=== PATIENT | female | born 1965 | race Caucasian/White ===

== ENCOUNTER 2020-05-23 12:39 | Outpatient (CLI) | payer MEDICARE, MEDICAID, SELFPAY ==
--- NOTE | 2020-05-23 13:06 | MR_ITS ---
WS: [id number] MRI LEFT SHOULDER NONCONTRAST TECHNIQUE: Sagittal T2, coronal T1, T2 and proton density imaging. Axial gradient PDE imaging. CLINICAL INFORMATION: PAIN LEFT SHOULDER JOINT COMPARISON: None. FINDINGS: Moderate degenerative arthritis at the AC joint with mild subacromial spurring. Mild edema at the AC joint. Tiny trace of subacromial/subdeltoid fluid. Mild chronic thinning of the distal supraspinatus. Tendinopathy involving the supraspinatus. Normal infraspinatus. Normal teres minor. Normal subscapul ruddy. No high-grade rotator cuff tears. Normal biceps tendon in the bicipital groove. Moderate degenerative arthritis at the glenohumeral andreina nt. Grossly normal glenoid labrum. Normal visualized soft tissues. MR/MR shoulder LT wo con* [id number] IMPRESSION: 1. Moderate degenerative arthritis at the AC joint with mild edema. Slight sub acromial spurring. 2. Mild tendinopathy in the distal supraspinatus with chronic thinning. 3. Rotator cuff is otherwise normal in appearance. No high-grade rotator cuff tears. 4. Normal biceps tendon in the bicipital groove. 5. Glenoid labrum is grossly normal.
== END 2020-05-23 12:40 | disposition home or self-care (01) ==
LOC: RADSHAW 12:41
PROVIDERS: PCP Nurse Practitioner Family; Visit Provider Nurse Practitioner Family
DX: M19.012 Primary osteoarthritis, left shoulder (principal)
CPT/HCPCS: 73221

== ENCOUNTER 2020-05-25 11:49 | Emergency (ER) | payer MEDICARE, MEDICAID, SELFPAY ==
[2020-05-25 11:51] VITALS: BP 146/88; PULSE 72; RESP 16; TEMP 36.3; O2SAT 100; BMI 34.7
--- NOTE | 2020-05-25 12:11 | ECG_ITS ---
[facility] Test Date: 2020-05-25 Pat Name: Zari Aldana Department: Room: Gender: Female Order Checker Packer Processer: : 1965 Requested By: Shane Moran Order Number: [id number] Aaron MD: Catrachito Laureano M.D. Measurements Intervals [place] Rate: 70 P: 53 AZ: 150 QRS: -14 QRSD: 83 T: 55 QT: 395 QTc: 429 Interpretive Statements SINUS RHYTHM LOW QRS VOLTAGE IN PRECORDIAL LEADS [QRS DEFLECTION < 1.0 mV IN CHEST LEADS] PATTERN CONSISTENT WITH PULMONARY DISEASE No previous ECG available for comparison Electronically Signed On 05-25-2020 16:02:31 GOAT HERDER by Catrachito Laureano M.D. [id number] f
--- NOTE | 2020-05-25 12:11 | XR_ITS ---
WS: [id number] Portable AP upright chest, 05/25/2020 Clinical Data: chest pain Comparison: None. Findings: No nodules, masses or effusions are seen. The heart is normal. The pulmonary vascularity is not increased. No pneumonia or pneumothorax is seen. There are monitor leads on the chest wall. The patient has had an anterior cervical disc fusion of the lower cervical spine. XR/XR chest 1V portable [id number] Impression: Negative chest.
[2020-05-25 12:18] VITALS: O2SAT 100
[2020-05-25 12:59] VITALS: BP 113/77; PULSE 69; RESP 21; O2SAT 99
--- NOTE | 2020-05-25 12:59 | ED_ITS ---
HPI - Chest Pain General: Chief Complaint: Chest Pain Stated Complaint: CP Time Seen by Provider: 05/25/20 12:11 History of Present Illness: HPI narrative: 55-year-old female presents emergency room clinic left-sided chest pain and shortness of breath does not radiate anywhere. Is been intermittent over the last month. 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 No fever sweats chills no nausea vomiting or diarrhea. She recently had an MRI that showed a left rotator cuff in addition to that she states she has a hiatal hernia and in the past has had esophageal strictures requiring dilation. Intermittently she will feel like things get stuck but she has not had any vomiting or difficulty getting food or liquid down just recently. Discomfort is worse when she eats better if she does not better when she takes her pantoprazole she has had this off and on for some time now. MD complaint: chest discomfort Onset (ago): year(s) Timing of current episode: episodic Onset: after eating Pain location: epigastric Pain radiation: other (Lower chest) Severity: mild Quality: aching Relieving factors: other (Not eating) Exacerbating factors: eating Associated symptoms: Reports abdominal pain, nausea, vomiting (Occasionally) and other; Deny diaphoresis, dyspnea, fever(s), leg edema, palpitations, sense of impending doom or syncope Review of Systems Const: Denies: fever(s) or diaphoresis ENMT: Denies: throat pain, ear or mastoid pain, nasal discharge or nasal congestion Card: Denies: palpitations or syncope Resp: Denies: dyspnea GI: Reports: abdominal pain, nausea and vomiting (Occasionally) : Denies: flank pain, difficulty voiding, dysuria, urinary frequency or urinary urgency Skin/Breast: Denies: rash or pruritus Physical Exam Const: COMMON NORMALS: no acute distress GENERAL APPEARANCE: cooperative and comfortable ORIENTATION/CONSCIOUSNESS: Yes awake, Yes oriented to person, Yes oriented to place and Yes oriented to time HENMT: COMMON NORMALS: normocephalic, atraumatic and hearing grossly normal bilaterally HEAD & SCALP: normocephalic and atraumatic Neck/C-Spine: COMMON NORMALS: no JVD Resp: COMMON NORMALS: normal respiratory effort, No retractions, No use of accessory muscles and clear to auscultation bilaterally AUSCULTATION: clear to auscultation bilaterally Cardio: COMMON NORMALS: no JVD, regular rate, regular rhythm and No murmurs present (Cardio) RATE: regular rate RHYTHM: regular rhythm GI: COMMON NORMALS: Soft to palpation and No hepatosplenomegaly present AUSCULTATION: Yes normoactive bowel sounds PALPATION: Yes Soft to palpation, No Tenderness to palpation present (GI), No Guarding due to palpation present (GI) and Yes No hepatosplenomegaly present Extremity: COMMON NORMALS: normal to inspection, capillary refill normal, no clubbing, cyanosis or edema, no calf tenderness and no pedal edema Neuro: SENSORIUM/ORIENTATION: Yes oriented to person, Yes oriented to place and Yes oriented to time Skin: COMMON NORMALS: no rashes or lesions noted GENERAL SKIN EXAM: no rashes or lesions noted Course Vital Signs: Vital signs: Vital Signs Temperature 97.3 F L 05/25/20 11:51 Pulse Rate 76 05/25/20 16:23 Respiratory Rate 17 05/25/20 16:23 Blood Pressure 109/81 05/25/20 16:23 Pulse Oximetry 100 05/25/20 16:23 MDM - Chest Pain MDM Narrative: Medical decision making narrative: Patient has no chest pain now EKG is unremarkable but discharged home she is improved. We will have her follow-up with GI for EGD and possible dilation. Shayne troponins negative Lab Data: Labs: Lab Results 05/25/20 05/25/20 05/25/20 Range/Units 12:55 12:55 12:55 WBC 4.2 (4.0-10.0) 10^3/ uL RBC 4.00 L (4.1-5.3) 10^6/u L Hgb 11.8 (11.5-15.3) g/dL Hct 36.1 L (37.0-47.0) % MCV 90.3 (81-99) fL MCH 29.5 (28.0-34.0) pg MCHC 32.7 (30.0-36.0) g/dL RDW 15.2 H (12.1-15.1) % Plt Count 250 (130-400) 10^3/c mm MPV 11.1 H (7.4-10.4) fL Neut % (Auto) 60.3 % Lymph % (Auto) 27.3 % Fisher % (Auto) 8.1 % Eos % (Auto) 3.8 % Baso % (Auto) 0.5 % Neut # (Auto) 2.52 (1.8-7.7) 10^3/u L Lymph # (Auto) 1.1 (0.8-4.8) 10^3/u L Fisher # (Auto) 0.3 (0.2-0.9) 10^3/u L Eos # (Auto) 0.2 (0.0-0.8) 10^3/u L Baso # (Auto) 0.0 (0.0-0.1) 10^3/u L Nucleated RBC % (a uto) 0 % Nucleated RBCs # 0.0 /100WBC Sodium 141 (136-145) mmol/L Potassium 4.4 (3.5-5.1) mmol/L Chloride 103 (98-107) mmol/L Carbon Dioxide 26 (22-29) mmol/L Anion Gap 16.4 (5-19) BUN 10 (6-20) mg/dL Creatinine 0.7 (0.5-0.9) mg/dL GFR Calculation 87.2 L (90-130) mL/min Glucose 79 (65-115) mg/dL Calculated Osmolal ity 290 (285-295) mOsm/k g Calcium 9.2 (8.5-10.5) mg/dL Total Bilirubin 0.3 (0.15-1.2) mg/dL AST 22 (0-32) U/L ALT 16 (0-33) U/L Alkaline Phosphata se 78 (35-105) IU/L Troponin T Baselin e 6 (0-10) ng/L Troponin T 120 Min [place] (0-10) ng/L Delta Troponin T (0-10) ABS# Total Protein 6.3 L (6.6-8.7) g/dL Albumin 4.0 (3.5-5.2) g/dL Globulin 2.3 (1.3-4.6) g/dL 05/25/20 Range/Units 15:03 WBC (4.0-10.0) 10^3/ uL RBC (4.1-5.3) 10^6/u L Hgb (11.5-15.3) g/dL Hct (37.0-47.0) % MCV (81-99) fL MCH (28.0-34.0) pg MCHC (30.0-36.0) g/dL RDW (12.1-15.1) % Plt Count (130-400) 10^3/c mm MPV (7.4-10.4) fL Neut % (Auto) % Lymph % (Auto) % Fisher % (Auto) % Eos % (Auto) % Baso % (Auto) % Neut # (Auto) (1.8-7.7) 10^3/u L Lymph # (Auto) (0.8-4.8) 10^3/u L Fisher # (Auto) (0.2-0.9) 10^3/u L Eos # (Auto) (0.0-0.8) 10^3/u L Baso # (Auto) (0.0-0.1) 10^3/u L Nucleated RBC % (a uto) % Nucleated RBCs # /100WBC Sodium (136-145) mmol/L Potassium (3.5-5.1) mmol/L Chloride (98-107) mmol/L Carbon Dioxide (22-29) mmol/L Anion Gap (5-19) BUN (6-20) mg/dL Creatinine (0.5-0.9) mg/dL GFR Calculation (90-130) mL/min Glucose (65-115) mg/dL Calculated Osmolal ity (285-295) mOsm/k g Calcium (8.5-10.5) mg/dL Total Bilirubin (0.15-1.2) mg/dL AST (0-32) U/L ALT (0-33) U/L Alkaline Phosphata se (35-105) IU/L Troponin T Baselin e (0-10) ng/L Troponin T 120 Min [place] 6.00 (0-10) ng/L Delta Troponin T 0 (0-10) ABS# Total Protein (6.6-8.7) g/dL Albumin (3.5-5.2) g/dL Globulin (1.3-4.6) g/dL Discharge Plan Discharge Patient Disposition: Home Clinical Impression: Atypical chest pain, Hernia, hiatal, Chronic GERD Condition: Stable Prescriptions: No Action fluticasone propionate 50 mcg/actuation spray,suspension 2 spray intranasal DAILY RF: 0 allopurinol 300 mg tablet 150 mg PO DAILY@2199 RF: 0 alprazolam 0.5 mg tablet 0.5 mg PO TID PRN (Reason: Anxiety) RF: 0 cyclobenzaprine 10 mg tablet 10 mg PO BID PRN (Reason: Pain) RF: 0 docusate sodium 100 mg capsule 200 mg PO DAILY@2199 RF: 0 epinephrine 0.15 mg/0.3 mL auto-injector 0.15 mg IM Q30M PRN (Reason: Allergy Symptoms) RF: 0 hydroxychloroquine 200 mg tablet 200 mg PO BID@ RF: 0 levothyroxine 150 mcg tablet 150 mcg PO DAILY@ RF: 0 montelukast 10 mg tablet 10 mg PO DAILY RF: 0 Movantik 25 mg tablet 25 mg PO BID RF: 0 pantoprazole 40 mg tablet,delayed release (DR/EC) 40 mg PO BID@ RF: 0 oxycodone-acetaminophen [Percocet] 7.5-325 mg tablet 1 tab PO .five x a day PRN (Reason: Pain) RF: 0 promethazine 25 mg tablet 25 mg PO BID PRN (Reason: Nausea) RF: 0 Trulicity 0.75 mg/0.5 mL pen injector 0.5 mg SUBCUT Q7D RF: 0 cetirizine [Zyrtec] 10 mg tablet 10 mg PO DAILY PRN (Reason: Allergy Symptoms) RF: 0 gabapentin 400 mg Capsule 400 mg PO BID@ RF: 0 pramipexole 0.125 mg tablet 0.125 mg PO BEDTIME RF: 0 albuterol sulfate 90 mcg/actuation Hfa Aerosol Inhaler 2 puff INHALATION Q6H PRN (Reason: Shortness Of Breath) RF: 0 metformin 500 mg Tablet,Er Miryam.Retention 24 Hr 1,000 mg PO BID@ RF: 0 Discharge Orders: Discharge ED (Routine); Ordered 05/25/20 Ordered By: Shane Parada Referrals: Trish Mclain, SYSTEM DEVELOPER ASSOCIATE MANAGER-C [Primary Care Provider] - Discharge Diet: Usual diet Discharge Activity: Resume usual activity Activity Restrictions/Additional Instructions: Case management will call to make arrangements for follow-up for EGD. Coding Level of Care Code ED Tribal Judge for Chg Fwd
[2020-05-25 13:08] LABS: Basophils % 0.5 %; Eosinophils # 0.2 10^3/uL (0.0-0.8); Eosinophils % 3.8 %; Hematocrit 36.1 % (37.0-47.0); Hemoglobin 11.8 g/dL (11.5-15.3); Lymphocytes # 1.1 10^3/uL (0.8-4.8); Lymphocytes % 27.3 %; Mean Corpuscular HGB Conc 32.7 g/dL (30.0-36.0); Mean Corpuscular Hemoglobin 29.5 pg (28.0-34.0); Mean Corpuscular Volume 90.3 fL (81-99); Mean Platelet Volume 11.1 fL (7.4-10.4); Monocytes # 0.3 10^3/uL (0.2-0.9); Monocytes % 8.1 %; Neutrophils # 2.52 10^3/uL (1.8-7.7); Neutrophils % 60.3 %; Nucleated Red Blood Cells % 0 %; Platelet Count 250 10^3/cmm (130-400); Red Cell Distribution Width 15.2 % (12.1-15.1); White Blood Count 4.2 10^3/uL (4.0-10.0)
[2020-05-25 13:27] LABS: Alanine Aminotransferase 16 U/L (0-33); Alkaline Phosphatase 78 IU/L (35-105); Anion Gap 16.4 (5-19); Aspartate Amino Transferase 22 U/L (0-32); Blood Urea Nitrogen 10 mg/dL (6-20); Calcium 9.2 mg/dL (8.5-10.5); Carbon Dioxide 26 mmol/L (22-29); Chloride 103 mmol/L (98-107); Globulin 2.3 g/dL (1.3-4.6); Glomerular Filtration Rate 87.2 mL/min (90-130); Glucose 79 mg/dL (65-115); Osmolality Calculated 290 mOsm/kg (285-295); Potassium 4.4 mmol/L (3.5-5.1); Sodium 141 mmol/L (136-145); Total Bilirubin 0.3 mg/dL (0.15-1.2); Total Protein 6.3 g/dL (6.6-8.7)
[2020-05-25 13:43] LABS: Troponin(5th) Baseline 6 ng/L (0-10)
[2020-05-25 14:07] VITALS: BP 128/86; PULSE 68; RESP 21; O2SAT 99
--- NOTE | 2020-05-25 14:11 | ECG_ITS ---
[facility] Test Date: 2020-05-25 Pat Name: Zari Aldana Department: Room: Gender: Female Junior Legal Secretary: : 1965 Requested By: Shane Moran Order Number: [id number] Aaron MD: Catrachito Laureano M.D. Measurements Intervals [place] Rate: 64 P: 43 AZ: 149 QRS: -11 QRSD: 86 T: 41 QT: 414 QTc: 427 Interpretive Statements SINUS RHYTHM LOW QRS VOLTAGE IN PRECORDIAL LEADS [QRS DEFLECTION < 1.0 mV IN CHEST LEADS] POSSIBLE ANTERIOR MYOCARDIAL INFARCTION , PROBABLY OLD [30 ms Q WAVE IN V3/V4, OR R < 0.2 mV IN V4] Compared to ECG 05/25/2020 11:55:02 Myocardial infarct finding now present Electronically Signed On 05-25-2020 16:04:34 AGRICULTURAL EXTENSION SPECIALIST by Catrachito Laureano M.D. [email or web address].[email or web address]/store/[id number]
[2020-05-25 15:29] LABS: Troponin 5 2HR Delta 0 ABS# (0-10)
--- NOTE | 2020-05-25 15:43 | PC.NURSE ---
UA collected and sent to lab
[2020-05-25 16:23] VITALS: BP 109/81; PULSE 76; RESP 17; O2SAT 100
--- NOTE | 2020-05-26 09:28 | DCPLANNER ---
manager of health had message to schedule a follow up appointment for patient with Dr. Johnston. manager of health called the office of Dr. Johnston, spoke with Deb, gave clinic patients information. manager of health was told that patients information would be printed and reviewed. Clinic will call patient with appointment information.
--- NOTE | 2020-05-31 10:48 | DCPLANNER ---
Patient has a follow up appointment scheduled for Friday, June 05, 2020 at 2:[address] Johnston. Clinic will call patient with appointment information.
--- NOTE | 2020-06-29 15:27 | DCPLANNER ---
Patient had a follow up appointment scheduled for 06.05.[address] Johnston - patient did attend appointment.
== END 2020-05-25 16:00 | disposition home or self-care (01) ==
PROVIDERS: Emergency Provider Family Medicine; PCP Nurse Practitioner Family
DX: R07.89 Other chest pain (principal); K44.9 Diaphragmatic hernia without obstruction or gangrene; K21.9 Gastro-esophageal reflux disease without esophagitis; Z79.891 Long term (current) use of opiate analgesic; Z79.84 Long term (current) use of oral hypoglycemic drugs
CPT/HCPCS: 71045; 80053; 84484; 85025; 93005; 99283

== ENCOUNTER → 2020-07-07 09:43 | Outpatient (BNVA) | payer MEDICARE, MEDICAID, SELFPAY | PROVIDERS: PCP Nurse Practitioner Family; Visit Provider Orthopaedic Surgery | DX: M50.21 Other cervical disc displacement, high cervical region (principal); M50.223 Other cervical disc displacement at C6-C7 level; Z86.59 Personal history of other mental and behavioral disorders | CPT/HCPCS: 72050 ==

== ENCOUNTER 2020-07-14 08:06 | Inpatient (IN) | payer MEDICARE, MEDICAID, SELFPAY ==
[2020-07-14] VITALS (9 sets, daily range): BP systolic 100–124; BP diastolic 62–77; PULSE 61–74; RESP 12–19; TEMP 36.2–36.6; O2SAT 97–100
--- NOTE | 2020-07-14 10:41 | PM.HP ---
Providers/Chief Complaint Admitting Physician: Kimberlee Zapien MD Primary Care Provider: Trish MclainP-C History of Present Illness Zari Aldana is a 55 year old female presents as a transfer from [place] emergency department with complaints of right flank pain. Patient reports this has been going on for at least 2 days. She has had some chills, dysuria, hesitancy and frequency. She has not had any recorded fevers, or obvious hematuria. She has had a little bit of loose stool. She has been anorexic, not wanting to eat and drink and drinking very little in the last 24 hours. She reports the pain currently is rather continuous and difficult to bear. She reports past history of renal stones but never any that she has passed or cause the significant amount of pain. She has not had any vomiting but reports that she cannot as she had gastric bypass. While in the emergency department at [place] she received a full laboratory work-up, urinalysis, urine culture. I did not see a blood culture. She had no evidence of hypotension. She was hypoglycemic with a hemoglobin around 50 which was supplemented with oral as well as IV glucose. CT scan at the [facility] demonstrated a left mid ureteral stone without hydronephrosis. Review of Systems General: Reports: 10 or more systems reviewed and unremarkable except in HPI and below Const: Reports: chills and night sweats; Denies: fever(s) Eyes: Denies: change in vision ENMT: Denies: throat pain Card: Denies: chest pain Resp: Denies: dyspnea GI: Reports: abdominal pain, nausea and diarrhea; Denies: vomiting : Reports: flank pain, dysuria, urinary frequency and urinary hesitancy Musc: Reports: neck pain (Has chronic back and neck pain) and back pain Skin/Breast: Denies: rash Neuro: Denies: headache(s) Psych: Reports: anxiety and depression Endo: Denies: polyuria Magdi/Lymph: Denies: easy bruising All/Imm: Denies: urticaria Medications/Allergies Home Medications Medication Instructions Recorded Confirmed Last Taken Type allopurinol 300 mg tablet 150 mg PO DAILY@2200 05/16/20 05/25/20 05/24/20 History alprazolam 0.5 mg tablet 0.5 mg PO TID PRN 05/16/20 05/25/20 Unknown History cetirizine 10 mg tablet 10 mg PO DAILY PRN 05/16/20 05/25/20 Unknown History cyclobenzaprine 10 mg tablet 10 mg PO BID PRN tab 05/16/20 05/25/20 Unknown History docusate sodium 100 mg capsule 200 mg PO DAILY@2200 cap 05/16/20 05/25/20 05/24/20 History dulaglutide 0.75 mg/0.5 mL 0.5 mg SUBCUT Q7D ml 05/16/20 05/25/20 05/20/20 History subcutaneous pen injector epinephrine 0.15 mg/0.3 mL 0.15 mg IM Q30M PRN 05/16/20 05/25/20 Unknown History injection,auto-injector hydroxychloroquine 200 mg tablet 200 mg PO BID@07,0 05/16/20 05/25/20 05/25/20 History levothyroxine 150 mcg tablet 150 mcg PO DAILY@07 05/16/20 05/25/20 05/25/20 History montelukast 10 mg tablet 10 mg PO DAILY 05/16/20 05/25/20 05/24/20 History naloxegol 25 mg tablet 25 mg PO BID tab 05/16/20 05/25/20 05/25/20 History oxycodone-acetaminophen 7.5 mg-325 1 tab PO .five x a day PRN tab 05/16/20 05/25/20 05/25/20 History mg tablet pantoprazole 40 mg tablet,delayed 40 mg PO BID@0 tab 05/16/20 05/25/20 05/25/20 History release promethazine 25 mg tablet 25 mg PO BID PRN tab 05/16/20 05/25/20 Unknown History albuterol sulfate 2 puff INHALATION Q6H PRN 05/25/20 06/05/20 Unknown History gabapentin 400 mg PO BID@05/25/20 06/05/20 05/25/20 History pramipexole 0.125 mg PO BEDTIME 05/25/20 06/05/20 05/24/20 History metformin 500 mg 24 hr See Rx Instructions PO BID@07/07/20 Unknown History tablet,extended release Allergies Allergy/AdvReac Type Severity Reaction Status Date / Time celecoxib [From Celebrex] Allergy Intermediate Unknown Verified 07/07/20 09:29 hylan G-F 20 [From Synvisc] Allergy Intermediate unknown Verified 07/07/20 09:29 nitrofurantoin Allergy Intermediate unknown Verified 07/07/20 09:29 [From Macrobid] NSAIDS (Non-Steroidal Allergy Intermediate unknown Verified 07/07/20 09:29 Anti-Inflamma ropinirole Allergy Intermediate unknown Verified 07/07/20 09:29 Sulfa (Sulfonamide Allergy Intermediate Unknown Verified 07/07/20 09:29 Antibiotics) PFSH Acute PFSH: Medical History (Updated 07/14/20 @ 10:53 by Gen Bahena MD) Anemia Asthma Chronic back pain Chronic pain Diabetes mellitus Fibromyalgia GERD (gastroesophageal reflux disease) Gout Hypothyroidism Lupus (systemic lupus erythematosus) Nephrolithiasis Osteoarthritis PTSD (post-traumatic stress disorder) Spinal stenosis Stricture of esophagus Surgical History (Updated 07/14/20 @ 10:46 by Gen Bahena MD) Gastric bypass status for obesity History of carpal tunnel surgery History of cholecystectomy History of fusion of cervical spine History of lumbar spinal fusion History of shoulder surgery History of tonsillectomy History of tubal ligation Family History Sister Cancer Mother Diabetes Heart disease Grandfather Diabetes Grandmother Diabetes Father Heart disease Social History (Updated 07/14/20 @ 10:47 by Gen Bahena MD) Smoking and tobacco status: never smoked Alcohol intake: never Adopted: No Marital status: Single Number of children: 2 service: No History of recent travel: No Vitals/I&O/Wt Last Vital Signs Temp 97.2 F L 07/14/20 09:54 Pulse 63 07/14/20 09:54 Resp 16 07/14/20 09:54 BP 109/67 07/14/20 09:54 Pulse Ox 98 07/14/20 09:54 Weight last 48 hrs Weight 89.902 kg Physical Exam Narrative: EXAM NARRATIVE: General exam is a white female, in obvious discomfort but alert and oriented HEENT: Atraumatic normocephalic. Pupils equally round. Oropharynx clear. Neck is supple no lymphadenopathy or thyromegaly Cardiovascular regular rate and rhythm without murmur, no S3 or S4 Lungs clear no wheezing or crackles Abdomen is soft with positive bowel sounds. No obvious organomegaly exam is deferred Extremities no cyanosis clubbing or edema, cap refill brisk Skin no rash Neuro no obvious focal deficits. Data Other data: Laboratories from [place]. White blood cell count 5.1, hemoglobin 10.9, platelet count 261,000. Sodium 138, potassium 3.4, chloride 99, bicarb 25, BUN 7, creatinine 0.87, glucose 51, LFTs normal Urinalysis 3-5 whites 0-2 reds 2+ leukocyte Estrace 0-[address] demonstrates left mid ureter stone without hydronephrosis and question ileus Urine culture was obtained A&P Assessment and plan (1) Ureteral stone: Sounds on the left. She is having more right flank pain. Morphine for pain Urology consultation Hydration Initiation of Flomax Status: Acute (2) UTI (urinary tract infection): Urine culture was done at [facility]. Repeat here. Rocephin 1 g IV every 12 hours Blood culture Status: Acute (3) Flank pain: Atypical in that right side hurts and stone is on the left. Urology will review Status: Acute (4) Hypoglycemia: Continue D5 normal saline with 20 mEq of potassium per liter secondary to presentation with hypoglycemia. Note that her potassium was also slightly low. Status: Acute Additional A&P Information Diabetes, mild sliding scale insulin Lupus, hold immunosuppressants Chronic pain. Reports she is arranging for pain clinic visit soon. Multiple other medical problems as outlined in past medical history. Continue many home medications. Full code SCDs for DVT prophylaxis as surgery is anticipated Attestations Medical Necessity Statement*: Will need greater than 2 midnight stay for evaluation and treatment of renal stone with UTI Time Spent in Patient Care: Greater than 35 minutes Coding Level of Care Code Acute Form Designer for Chg Fwd Diagnoses Ureteral stone N20.1 UTI (urinary tract infection) N39.0 Flank pain R10.9 Hypoglycemia E16.2
[2020-07-14 11:24] LABS: Glucose Point of Care 148 mg/dL (70-110)
[2020-07-14 11:24] LABS: Glucose Point of Care 71 mg/dL (70-110)
[2020-07-14] MEDS: morphine 4 mg/mL SDV 1 mL 2 MG IVP ×2 (11:55→19:35)
[2020-07-14] MEDS: dextrose 5%-ns + KCl 20 20 MEQ/1,000 ML BAG 125 MEQ IV ×2 (12:25→21:44)
--- NOTE | 2020-07-14 15:19 | P.CONIM_ITS ---
Providers/Reason For Consult Consulting Physican/Specialty*: Urology/Gerardo Reason for Consult*: Pyelonephritis left ureteral calculus Attending Physician: Gen Bahena MD Primary Care Provider: Trish MclainP-Daniel History of Present Illness History of Present Illness Zari Aldana is a 55 year old female who I evaluated for the first time today in consultation for the above chief complaint. She has recently moved to this area from [place]. Reports a history of both recurrent UTIs and stones. Was seen at [place] emergency department last night and transferred for evaluation for possible obstructive pyelonephritis. She complained of several days of abdominal pain and nausea, chills, flank pain. She relates the symptoms as being primarily on the right side and typical for what she is experienced in the past when she had UTIs/pyelonephritis. No documented fever. Mild diarrhea. Work-up at [facility]: 1. White count was normal 2. Urinalysis showed pyuria 3. Normal vital signs 4. CT scan showed no evidence of obstruction but she did have what appeared to be a calcification in the left mid ureter. No hydronephrosis. The ureter was not dilated to the area of the calcification. She was not able to relate much in the way of her prior history other than she has had multiple evaluations including CT scans in [facility]. She thought she had some stones in her kidneys at that time. Review of Systems Const: Reports: chills, fatigue and malaise; Denies: fever(s) Eyes: Denies: change in vision ENMT: Denies: throat pain or hoarseness Card: Denies: chest pain or palpitations Resp: Denies: dyspnea or productive cough GI: Reports: abdominal pain, nausea and change in stool character : Reports: flank pain (Right-sided) Musc: Reports: neck pain, back pain and other (Chronic pain) Skin/Breast: Denies: rash, changing lesions or lesions Neuro: Denies: confusion, behavioral changes or Slurred speech present Psych: Denies: anxiety, depression or memory loss Endo: Denies: hot flashes Magdi/Lymph: Denies: easy bruising or easy bleeding All/Imm: Denies: urticaria Meds/Allergies Home Medications and Allergies Home Medications Medication Instructions Recorded Confirmed Last Taken Type allopurinol 300 mg tablet 150 mg PO DAILY@2200 05/16/20 05/25/20 05/24/20 History alprazolam 0.5 mg tablet 0.5 mg PO TID PRN 05/16/20 05/25/20 Unknown History cetirizine 10 mg tablet 10 mg PO DAILY PRN 05/16/20 05/25/20 Unknown History cyclobenzaprine 10 mg tablet 10 mg PO BID PRN tab 05/16/20 05/25/20 Unknown History docusate sodium 100 mg capsule 200 mg PO DAILY@2199 cap 05/16/20 05/25/20 05/24/20 History dulaglutide 0.75 mg/0.5 mL 0.5 mg SUBCUT Q7D ml 05/16/20 05/25/20 05/20/20 History subcutaneous pen injector epinephrine 0.15 mg/0.3 mL 0.15 mg IM Q30M PRN 05/16/20 05/25/20 Unknown History injection,auto-injector hydroxychloroquine 200 mg tablet 200 mg PO BID@05/16/20 05/25/20 05/25/20 History levothyroxine 150 mcg tablet 150 mcg PO DAILY@07 05/16/20 05/25/20 05/25/20 History montelukast 10 mg tablet 10 mg PO DAILY 05/16/20 05/25/20 05/24/20 History naloxegol 25 mg tablet 25 mg PO BID tab 05/16/20 05/25/20 05/25/20 History oxycodone-acetaminophen 7.5 mg-325 1 tab PO .five x a day PRN tab 05/16/20 05/25/20 05/25/20 History mg tablet pantoprazole 40 mg tablet,delayed 40 mg PO BID@0 tab 05/16/20 05/25/20 05/25/20 History release promethazine 25 mg tablet 25 mg PO BID PRN tab 05/16/20 05/25/20 Unknown History albuterol sulfate 2 puff INHALATION Q6H PRN 05/25/20 06/05/20 Unknown History gabapentin 400 mg PO BID@05/25/20 06/05/20 05/25/20 History pramipexole 0.125 mg PO BEDTIME 05/25/20 06/05/20 05/24/20 History metformin 500 mg 24 hr See Rx Instructions PO BID@07,22 07/07/20 Unknown History tablet,extended release Allergies Allergy/AdvReac Type Severity Reaction Status Date / Time celecoxib [From Celebrex] Allergy Intermediate Unknown Verified 07/07/20 09:29 hylan G-F 20 [From Synvisc] Allergy Intermediate unknown Verified 07/07/20 09:29 nitrofurantoin Allergy Intermediate unknown Verified 07/07/20 09:29 [From Macrobid] NSAIDS (Non-Steroidal Allergy Intermediate unknown Verified 07/07/20 09:29 Anti-Inflamma ropinirole Allergy Intermediate unknown Verified 07/07/20 09:29 Sulfa (Sulfonamide Allergy Intermediate Unknown Verified 07/07/20 09:29 Antibiotics) Current Medications Current Medications Generic Name Dose Route Start Last Admin Trade Name Freq PRN Reason Stop Dose Admin Potassium Chloride/Dextrose/Sod Cl 20 meq in 1,000 mls @ 125 mls/hr 07/14/20 10:45 07/14/20 12:25 Dextrose 5%-Ns + Kcl 20 IV 125 mls/hr .Q8H TANA Administration Insulin Aspart 0 unit 07/14/20 12:00 07/14/20 12:42 Insulin Aspart 100 Unit/1 Ml SUBCUT Not Given WM&BEDTIME TANA Protocol Morphine Sulfate 2 mg 07/14/20 09:53 07/14/20 11:55 Morphine 4 Mg/Ml Sdv 1 Ml IVP 2 mg Q4H PRN Administration SEVERE PAIN PFSH Acute PFSH: Medical History Anemia Asthma Chronic back pain Chronic pain Diabetes mellitus Fibromyalgia GERD (gastroesophageal reflux disease) Gout Hypothyroidism Lupus (systemic lupus erythematosus) Nephrolithiasis Osteoarthritis PTSD (post-traumatic stress disorder) Spinal stenosis Stricture of esophagus Surgical History Gastric bypass status for obesity History of carpal tunnel surgery History of cholecystectomy History of fusion of cervical spine History of lumbar spinal fusion History of shoulder surgery History of tonsillectomy History of tubal ligation Family History Sister Cancer Mother Diabetes Heart disease Grandfather Diabetes Grandmother Diabetes Father Heart disease Social History Smoking and tobacco status: never smoked Alcohol intake: never Adopted: No Marital status: Single Number of children: 2 service: No History of recent travel: No Vitals/I&O/Wt Last Vital Signs Temp 97.6 F 07/14/20 15:17 Pulse 63 07/14/20 15:17 Resp 16 07/14/20 15:17 BP 100/62 07/14/20 15:17 Pulse Ox 100 07/14/20 15:17 07/14/20 07/14/20 07/14/20 06:59 14:59 22:59 Output Total 400 / 400 Balance -400 / -400 Weight last 48 hrs Weight 198 lb 3.2 oz Physical Exam Const: COMMON NORMALS: alert and well nourished GENERAL APPEARANCE: well kempt and well developed ORIENTATION/CONSCIOUSNESS: not confused HENMT: COMMON NORMALS: normocephalic and atraumatic HEAD & SCALP: normocephalic and atraumatic Eye: COMMON NORMALS: conjunctivae normal and no scleral icterus CONJUNCTIVA: Yes conjunctivae normal Neck/C-Spine: COMMON NORMALS: full ROM Resp: COMMON NORMALS: normal respiratory effort EFFORT & INSPECTION: No labored and No Actively coughing GI: COMMON NORMALS: Soft to palpation PALPATION: Yes Soft to palpation and Yes Tenderness to palpation present (GI) : BLADDER/KIDNEY EXAM: Yes bladder normal to palpation BIMANUAL EXAM - VAGINA & UTERUS: Yes bladder normal to palpation Extremity: COMMON NORMALS: no clubbing, cyanosis or edema Neuro: COMMON NORMALS: no focal motor deficits SENSORIUM/ORIENTATION: Yes alert Psych: COMMON NORMALS: mental status grossly normal APPEARANCE: Yes grossly normal and Yes well kempt ATTITUDE: Yes calm and Yes engaged Skin: COMMON NORMALS: no rashes or lesions noted and no jaundice GENERAL SKIN EXAM: no rashes or lesions noted Data Micro: Micro: Microbiology 07/14/20 12:45 Blood Culture - Pr eliminary Blood SPECIMEN [facility] 07/14/20 12:45 Blood Culture - Pr eliminary Blood SPECIMEN [facility] Other Data: Other data: I personally reviewed the CT scan that was shared with [facility] from [facility]. There is a calcification that is suspicious for a stone in the area of the left mid ureter but it actually appears that the ureter is lateral to the calcification. There is no proximal LEFT ureteral or renal pelvis or calyceal dilation. (Nontender) There is no evidence of obstruction on the right side (where she is tender) A&P Assessment and plan (1) Urolithiasis: History of recurrent urolithiasis. I am not so sure that the calcification seen on the CT scan is actually in the ureter. Cannot rule it out but she has no symptoms on that side or physical findings pointing to a stone. She does have symptoms suspicious for pyelonephritis on the opposite side the right side where she has a history more typical for pyelonephritis. Consider IVP because of the difficulty in identifying the stones location relative to the ureter on CT scan, assuming her symptoms do not improve with antibiotic therapy alone. Status: Acute (2) UTI (urinary tract infection): See above She will need outpatient follow-up for recurrent UTIs. Status: Acute Consult Attestations Medical Necessity Statement: There is still concern regarding the potential for obstructive pyelonephritis but I think that risk is lower than expected on admission. Coding Level of Care Code Acute Bow Maker Gift Wrapping for [facility] Diagnoses Urolithiasis N20.9 UTI (urinary tract infection) N39.0
[2020-07-14] MEDS: oxyCODONE 5 mg IR Tab/Cap PO ×2 (15:42→21:34)
[2020-07-14] MEDS: cefTRIAXone 1,000 MG in sodium chloride 0.9% (plus) 50 ML 100 MG IV (15:47)
[2020-07-14 16:23] LABS: Glucose Point of Care 66 mg/dL (70-110)
[2020-07-14 17:01] LABS: Glucose Point of Care 154 mg/dL (70-110)
--- NOTE | 2020-07-14 17:20 | PC.NURSE ---
this morning while receiving report on the direct admit that was coming this nurse was informed that the patients blood sugar had been 51 at the other facility, she was given juice and it was down to 42, after pudding it was 88, but then trended down again and was 57 when the nurse at the other facility administered 1 amp of D5D. once the patient arrived at the hospital and was settled in her room the laborer salvage checked the patients blood sugar and it was 78. patient was initially NPO and ordered to have dextrose 5%-ns+ KCl 20meq at 125mL/hr which was hung, then this nurse instructed the laborer salvage to give the patient juice milk and ashtyn crackers which upon assessment was 73. patient was given a large cup of juice with jello and the blood sugar came up to 166. patient later complained of feeling hot and having a UMAÑA so her sugar was checked again and it was 148. when the aide was checking sugars again before dinner the patients blood sugar lever was at 66, so juice with sugar added was given d/t clear liquid diet and has since been checked and is now at 154. based on this sugar level patient should be receiving 2 units of insulin per sliding scale for the dinner meal but d/t her rapidly fluctuating blood sugar levels this nurse, with the approval of the charge nurse have held the insulin for the dinner meal. nursing staff will continue to closely monitor.
[2020-07-14 19:22] LABS: Glucose Point of Care 92 mg/dL (70-110)
[2020-07-14] MEDS: allopurinol 300 mg Tablet 150 MG PO (21:21)
[2020-07-14] MEDS: pramipexole 0.25 mg Tablet 0.125 MG PO (21:21)
[2020-07-14] MEDS: gabapentin 400 mg Capsule PO (21:21)
[2020-07-14] MEDS: pantoprazole DR 40 mg Tablet PO (21:21)
[2020-07-14] MEDS: tamsulosin 0.4 mg Capsule PO (21:22)
[2020-07-14 22:34] LABS: Glucose Point of Care 96 mg/dL (70-110)
[2020-07-15] VITALS (11 sets, daily range): BP systolic 109–120; BP diastolic 61–76; PULSE 60–83; RESP 16–20; TEMP 36.2–36.8; O2SAT 90–100
[2020-07-15] MEDS: cefTRIAXone 1,000 MG in sodium chloride 0.9% (plus) 50 ML 100 MG IV ×2 (04:17→16:23)
[2020-07-15] MEDS: dextrose 5%-ns + KCl 20 20 MEQ/1,000 ML BAG 125 MEQ IV ×2 (05:40→20:34)
[2020-07-15 05:49] LABS: Glucose Point of Care 94 mg/dL (70-110)
[2020-07-15] MEDS: gabapentin 400 mg Capsule PO ×2 (06:30→21:36)
[2020-07-15] MEDS: pantoprazole DR 40 mg Tablet PO ×2 (06:31→21:36)
[2020-07-15] MEDS: levothyroxine 150 mcg Tablet PO (06:31)
[2020-07-15 07:25] LABS: Eosinophils # 0.2 10^3/uL (0.0-0.8); Eosinophils % 7.6 %; Hematocrit 36.2 % (37.0-47.0); Hemoglobin 10.7 g/dL (11.5-15.3); Lymphocytes # 0.9 10^3/uL (0.8-4.8); Mean Corpuscular HGB Conc 29.6 g/dL (30.0-36.0); Mean Corpuscular Hemoglobin 29.4 pg (28.0-34.0); Mean Corpuscular Volume 99.5 fL (81-99); Mean Platelet Volume 10.5 fL (7.4-10.4); Monocytes # 0.3 10^3/uL (0.2-0.9); Monocytes % 10.2 %; Neutrophils # 1.55 10^3/uL (1.8-7.7); Neutrophils % 51.2 %; Nucleated Red Blood Cells % 0 %; Platelet Count 226 10^3/cmm (130-400); Red Blood Count 3.64 10^6/uL (4.1-5.3); Red Cell Distribution Width 15.5 % (12.1-15.1)
--- NOTE | 2020-07-15 07:49 | XRR_ITS ---
PROCEDURE INFORMATION: Exam: XR Abdomen Exam date and time: 07/15/2020 9:40 AM Age: 55 years old Clinical indication: Abdominal pain; Additional info: Urolithiasis TECHNIQUE: Imaging protocol: XR of the abdomen. Views: Frontal supine view of the abdomen. 1 View. COMPARISON: CT abdomen pelvis con [id number] 07/14/2020 2:43 AM FINDINGS: Gastrointestinal tract: No dilated gas-filled loops of bowel. Organs: No radiopaque renal or ureteral calculi identified. Prior cholecystectomy. Vasculature: There is a calcification to the left of the L4 vertebral body which has a lucent center compatible with a phlebolith. Multiple phleboliths in the deep pelvis bilaterally. Bones/joints: Prior posterior richard fusion with pedicle screws at L4-L5. Interbody spacer at L4-L5. Slight curvature of the lower lumbar spine convex to the left. Disc degeneration felt to be most prominent at L3-L4. XR/XR KUB [id number] IMPRESSION: Phlebolith along the course of the left ureter corresponding to that seen on the prior comparison CT ABDOMEN/PELVIS.
--- NOTE | 2020-07-15 10:48 | PM.PN ---
Subjective Subjective: Interval history: Hungry. Continues to improve clinically. Pain is somewhat improved. Still with no LEFT sided pain. I ordered a KUB for this morning and it shows that the calcification in question has all the features of an PHLEBOLITH. I also reviewed the CT scan again and it is clear that the ureter can be distinguished from this calcification. THEREFORE: She does not have a left ureteral stone and that fits the picture without obstructive changes on the CT scan and no left-sided symptoms. From my perspective at this point the decisions need to be based on her status for an infection only and not considering potentially obstructive pyelonephritis. She does have a history of recurrent UTIs. Risk factors include soiling herself when she takes medicine for chronic constipation. I have recommended follow-up in my office for recurrent UTI evaluation/treatment including consideration of cystoscopy, possible treatment for CHRONIC CYSTITIS, risk factor prophylaxis, self treatment program. I explained all the above to her and it made sense. Recommended that she have a normal diet. When okay from a hospitalist perspective she can be discharged. Vitals/I&O/Wt Last Vital Signs Temp 97.1 F L 07/15/20 07:02 Pulse 64 07/15/20 07:54 Resp 16 07/15/20 07:54 BP 110/61 07/15/20 07:02 Pulse Ox 94 07/15/20 07:54 07/14/20 07/15/20 07/15/20 22:59 06:59 14:59 Intake Total 1850 / 1850 1281.667 / 3131.667 360 / 360 Balance 1850 / 1450 1281.667 / 2731.667 360 / 360 Weight last 48 hrs Weight 198 lb Weight 198 lb 3.2 oz Physical Exam Const: COMMON NORMALS: no acute distress, alert and well nourished GENERAL APPEARANCE: well kempt and well developed ORIENTATION/CONSCIOUSNESS: not confused HENMT: COMMON NORMALS: normocephalic and atraumatic HEAD & SCALP: normocephalic and atraumatic Eye: COMMON NORMALS: no scleral icterus Neck/C-Spine: COMMON NORMALS: full ROM Resp: COMMON NORMALS: normal respiratory effort EFFORT & INSPECTION: No labored and No Actively coughing Extremity: COMMON NORMALS: no clubbing, cyanosis or edema Neuro: SENSORIUM/ORIENTATION: Yes alert Psych: COMMON NORMALS: mental status grossly normal APPEARANCE: Yes grossly normal and Yes well kempt ATTITUDE: Yes calm and Yes engaged Skin: COMMON NORMALS: no rashes or lesions noted and no jaundice GENERAL SKIN EXAM: no rashes or lesions noted Data : 07/15/20 06:56 Micro: Microbiology 07/14/20 12:45 Blood Culture - Preliminary Blood SPECIMEN COLLECTED 07/14/20 12:45 Blood Culture - Preliminary Blood SPECIMEN COLLECTED A&P Assessment and plan (1) UTI (urinary tract infection): Symptoms are typical for prior episodes of pyelonephritis. She seems to be doing much better from that perspective now. No evidence of obstructive pyelonephritis. I will sign off at this point but I do need to see her back for recurrent UTI evaluation in my office in about 3 weeks Status: Acute Qualifiers: Urinary tract infection type: acute pyelonephritis Qualified Code(s): N10 - Acute pyelonephritis (2) Urolithiasis: The stone in question in the area of the left ureter was eventually determined to not be in the ureter. It is a phlebolith and on the CT scan cannot be distinguished from the ureter course. Status: Acute Qualifiers: Urinary calculus location: kidney Qualified Code(s): N20.0 - Calculus of kidney (3) Flank pain: Probably related to RIGHT pyelonephritis. Status: Acute Attestations Medical Necessity Statement*: See attending Coding Level of Care Code Acute Program Lead for [facility] Fwd Exam Comprehensive Diagnoses UTI (urinary tract infection) N10 Urinary tract infection type: acute pyelonephritis Urolithiasis N20.0 Urinary calculus location: kidney Flank pain R10.9 Time Spent (min) 25
[2020-07-15 11:46] LABS: Alanine Aminotransferase 15 U/L (0-33); Albumin Level 3.9 g/dL (3.5-5.2); Alkaline Phosphatase 72 IU/L (35-105); Aspartate Amino Transferase 21 U/L (0-32); Blood Urea Nitrogen 3 mg/dL (6-20); Carbon Dioxide 26 mmol/L (22-29); Chloride 107 mmol/L (98-107); Globulin 2.3 g/dL (1.3-4.6); Glomerular Filtration Rate 104.2 mL/min (90-130); Glucose 78 mg/dL (65-115); Osmolality Calculated 285 mOsm/kg (285-295); Sodium 140 mmol/L (136-145); Total Bilirubin 0.2 mg/dL (0.15-1.2); Total Protein 6.2 g/dL (6.6-8.7)
[2020-07-15] MEDS: cyclobenzaprine 10 mg Tablet PO ×2 (11:55→20:42)
[2020-07-15] MEDS: oxyCODONE 5 mg IR Tab/Cap PO ×2 (11:56→20:41)
[2020-07-15 12:01] LABS: Glucose Point of Care 150 mg/dL (70-110)
[2020-07-15 12:12] LABS: Anion Gap 11.5 (5-19); Potassium 4.5 mmol/L (3.5-5.1)
--- NOTE | 2020-07-15 13:01 | PM.PN ---
Subjective Subjective: Interval history: Patient is doing okay. Denies uncontrolled pain. Reports some dysuria and pain suprapubic area. Denies back pain. No fevers or chills. No nausea or vomiting Medications: Reviewed: Yes Medication Review Details: Generic Name Dose Route Start Last Admin Trade Name Justin PRN Reason Stop Dose Admin Allopurinol 150 mg 07/14/20 22:00 07/14/20 21:21 Allopurinol 300 Mg Tablet PO 150 mg DAILY@2199 TANA Administration Cyclobenzaprine HC l 10 mg 07/14/20 11:07 07/15/20 11:55 Cyclobenzaprine 10 Mg Tablet PO 10 mg BID PRN Administration MUSCLE SPASM Gabapentin 400 mg 07/14/20 22:00 07/15/20 06:30 Gabapentin 400 M g Capsule PO 400 mg BID@ TANA Administration Potassium Chloride /Dextrose/Sod Cl 20 meq in 1,000 m ls @ 125 mls/hr 07/14/20 10:45 07/15/20 11:55 Dextrose 5%-Ns + Kcl 20 IV 0 mls/hr .Q8H TANA Infusion Ceftriaxone Sodium 1,000 mg/ 50 mls @ 100 mls/ hr 07/14/20 16:00 07/15/20 05:36 Sodium Chloride IV Infused Q12H TANA Infusion Protocol Insulin Aspart 0 unit 07/14/20 12:00 07/15/20 09:32 Insulin Aspart 1 00 Unit/1 Ml SUBCUT Not Given WM&BEDTIME TANA Protocol Levothyroxine Sodi um 150 mcg 07/15/20 07:00 07/15/20 06:31 Levothyroxine 15 0 Mcg Tablet PO 150 mcg DAILY@07 TANA Administration Morphine Sulfate 2 mg 07/14/20 09:53 07/14/20 19:35 Morphine 4 Mg/Ml Sdv 1 Ml IVP 2 mg Q4H PRN Administration SEVERE PAIN Oxycodone HCl 5 mg 07/14/20 14:41 07/15/20 11:56 Oxycodone 5 Mg I r Tab/Cap PO 5 mg Q4H PRN Administration MODERATE PAIN Pantoprazole Sodiu m 40 mg 07/14/20 22:00 07/15/20 06:[address] 40 Mg Tablet PO 40 mg BID@ TANA Administration Pramipexole Dihydr ochloride 0.125 mg 07/14/20 21:00 07/14/20 21:21 Pramipexole 0.25 Mg Tablet PO 0.125 mg BEDTIME TANA Administration Tamsulosin HCl 0.4 mg 07/14/20 21:00 07/14/20 21:22 Tamsulosin 0.4 M g Capsule PO 0.4 mg BEDTIME TANA Administration Vitals/I&O/Wt Last Vital Signs Temp 97.3 F L 07/15/20 11:46 Pulse 83 07/15/20 11:46 Resp 17 07/15/20 11:56 BP 110/62 07/15/20 11:46 Pulse Ox 100 07/15/20 11:56 07/14/20 07/15/20 07/15/20 22:59 06:59 14:59 Intake Total 1850 / 1850 1281.667 / 3131.667 1141.25 / 1141.25 Balance 1850 / 1450 1281.667 / 2731.667 1141.25 / 1141.25 Weight last 48 hrs Weight 89.811 kg Weight 89.902 kg Physical Exam Narrative: EXAM NARRATIVE: Awake alert oriented. No acute distress. Mood and affect are appropriate Skin is warm and dry. Moist mucous membranes Neck supple. No JVD Lungs clear bilaterally. No respiratory distress Heart S1, S2, regular Abdomen soft, nontender, bowel sounds are present. No CVA tenderness bilaterally Extremities no edema cyanosis or calf tenderness bilaterally Data : 07/15/20 06:56 07/15/20 11:02 Micro: Microbiology 07/14/20 12:45 Blood Culture - Preliminary Blood SPECIMEN COLLECTED 07/14/20 12:45 Blood Culture - Preliminary Blood SPECIMEN COLLECTED A&P Assessment and plan (1) Ureteral stone: Sounds on the left. She is having more right flank pain. Morphine for pain Urology consultation Hydration Initiation of Flomax Status: Deleted (2) UTI (urinary tract infection): Urine culture was done at [facility]. Repeat here. Rocephin 1 g IV every 12 hours Blood culture Status: Acute Qualifiers: Urinary tract infection type: acute pyelonephritis Qualified Code(s): N10 - Acute pyelonephritis (3) Flank pain: Atypical in that right side hurts and stone is on the left. Urology will review Status: Acute (4) Hypoglycemia: Continue D5 normal saline with 20 mEq of potassium per liter secondary to presentation with hypoglycemia. Note that her potassium was also slightly low. Status: Acute Additional A&P Information Diabetes, mild sliding scale insulin Lupus, hold immunosuppressants Chronic pain. Reports she is arranging for pain clinic visit soon. Multiple other medical problems as outlined in past medical history. Continue many home medications. Full code SCDs for DVT prophylaxis as surgery is anticipated [place] UTI/pyelonephritis. Will request urine cultures from [place]. We will continue Rocephin for now. Improving clinically. Suspected urolithiasis/?urinary obstruction. Not confirmed. Cleared by Dr. Gerardo for discharge. Currently doing very well and the pain is minimal and well controlled. Appreciate Dr. Gerardo's input. Anemia. Mild. Monitor. Diabetes. Continue current management. DVT prophylaxis. Lovenox. The plan of care was discussed with the patient and multidisciplinary team. They verbalized understanding and agreement. Attestations Medical Necessity Statement*: Hopefully will be able to discharge home next 1 or 2 days depending on when we get her urine culture results. Coding Level of Care Code Acute Fluorescent Lighting Model Maker for [facility] Diagnoses Ureteral stone N20.1 UTI (urinary tract infection) N10 Urinary tract infection type: acute pyelonephritis Flank pain R10.9 Hypoglycemia E16.2
--- NOTE | 2020-07-15 13:12 | PC.NURSE ---
pt asked that staff leave her tray for three to four hours because she can only eat a little bit at a time
[2020-07-15] MEDS: enoxaparin 40 mg/0.4 mL Syringe SUBCUT (13:50)
[2020-07-15] MEDS: morphine 4 mg/mL SDV 1 mL 2 MG IVP (15:51)
[2020-07-15 16:09] LABS: Glucose Point of Care 76 mg/dL (70-110)
[2020-07-15] MEDS: famotidine 20 mg Tablet PO (18:21)
[2020-07-15 20:09] LABS: Glucose Point of Care 92 mg/dL (70-110)
[2020-07-15] MEDS: pramipexole 0.25 mg Tablet 0.125 MG PO (20:30)
[2020-07-15] MEDS: ALPRAZolam 0.5 mg Tablet PO (20:42)
[2020-07-15] MEDS: allopurinol 300 mg Tablet 150 MG PO (21:36)
[2020-07-16] VITALS: BP 107/63; PULSE 68; RESP 18; TEMP 36.1; O2SAT 97
[2020-07-16 04:00] VITALS: BP 101/59; PULSE 62; RESP 18; TEMP 36.7; O2SAT 97
[2020-07-16] MEDS: cefTRIAXone 1,000 MG in sodium chloride 0.9% (plus) 50 ML 100 MG IV (04:25)
[2020-07-16] MEDS: dextrose 5%-ns + KCl 20 20 MEQ/1,000 ML BAG 125 MEQ IV (04:27)
[2020-07-16] MEDS: levothyroxine 150 mcg Tablet PO (06:10)
[2020-07-16] MEDS: pantoprazole DR 40 mg Tablet PO (06:10)
[2020-07-16] MEDS: gabapentin 400 mg Capsule PO (06:10)
[2020-07-16 06:32] LABS: Glucose Point of Care 113 mg/dL (70-110)
[2020-07-16 06:54] VITALS: BP 113/64; PULSE 64; RESP 16; TEMP 36.1; O2SAT 99
[2020-07-16] MEDS: fluconazole 100 mg Tablet PO (09:01)
[2020-07-16] MEDS: famotidine 20 mg Tablet PO (09:01)
[2020-07-16] MEDS: cefdinir 300 MG CAPSULE PO (09:04)
[2020-07-16 10:22] LABS: Glucose Point of Care 109 mg/dL (70-110)
[2020-07-16 10:26] VITALS: BP 116/68; PULSE 78; RESP 16; TEMP 36.8; O2SAT 95
--- NOTE | 2020-07-16 10:27 | P.DS_ITS ---
Discharge Providers Date of Admission: 07/14/20 08:06 Date of Discharge: July 16, 2020 Attending Provider at Admission: Kimberlee Zapien MD Attending Provider at Discharge: Chente Miller Primary Care Provider: Trish Mclain Diagnoses at Discharge Discharge Diagnosis (1) Ureteral stone: Status: Deleted (2) UTI (urinary tract infection): Status: Acute Qualifiers: Urinary tract infection type: acute pyelonephritis Qualified Code(s): N10 - Acute pyelonephritis (3) Flank pain: Status: Acute (4) Hypoglycemia: Status: Acute Hospital Course Hospital Course Discharge diagnoses and problem list UTI/pyelonephritis. Improving symptoms. She reports improved dysuria. Denies any back pain. No nausea or vomiting. No diarrhea. No fever or chills. She is eager to go home. Will Switch Abx to Omnicef for additional 5 days. She will continue follow-up with her primary care provider after discharge. She is instructed to come back to emergency room if she develops any worsening pain or dysuria, fever or chills, nausea or vomiting, back pain, diarrhea, blood in the urine or any other new symptoms. She verbalized understanding and agreement. Suspected urolithiasis/?urinary obstruction. Not confirmed. Cleared by Dr. Gerardo for discharge. Currently doing very well and the pain is minimal and well controlled. Appreciate Dr. Gerardo's input. History of SLE. Reports chronic joint aches. 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 Anemia. Mild. Stable. Diabetes. Continue current home management. DVT prophylaxis. Received Lovenox. Physical Exam Narrative: EXAM NARRATIVE: Awake alert oriented. No acute distress. Mood and affect are appropriate Skin is warm and dry. Moist mucous membranes Neck supple. No JVD Lungs clear bilaterally. No respiratory distress Heart S1, S2, regular Abdomen soft, nontender, bowel sounds are present. No CVA tenderness bilaterally Extremities no edema cyanosis or calf tenderness bilaterally Discharge Data Data Completed and Pending: Completed Studies During Hospitalization Category Date Time Status XR KUB [id number] Rout ine Exams 07/15/20 07:49 Completed Pending at discharge Category Date Time Status Blood Culture Sta t Lab 07/14/20 12:45 Results Complete Blood Co unt w/Auto AM LABS Lab 07/16/20 04:00 Ordered Magnesium AM LABS Lab 07/16/20 04:00 Ordered Renal Function Pa arlene Timed Lab 07/16/20 04:00 Ordered Labs from last 24 hours 07/16/20 07/16/20 07/15/20 10:14 06:25 20:01 Sodium Potassium Chloride Carbon Dioxide Anion Gap BUN Creatinine GFR Calculation Glucose POC Glucose 109 113 H 92 Calculated Osmolal ity Calcium Total Bilirubin AST ALT Alkaline Phosphata se Total Protein Albumin Globulin 07/15/20 07/15/20 07/15/20 15:57 11:44 11:02 Sodium 140 Potassium 4.5 Chloride 107 Carbon Dioxide 26 Anion Gap 11.5 BUN 3 L Creatinine 0.6 GFR Calculation 104.2 Glucose 78 POC Glucose 76 150 H Calculated Osmolal ity 285 Calcium 9.0 Total Bilirubin 0.2 AST 21 ALT 15 Alkaline Phosphata se 72 Total Protein 6.2 L Albumin 3.9 Globulin 2.3 Vitals: Last Vital Signs Temp 98.3 F 07/16/20 10:26 Pulse 78 07/16/20 10:26 Resp 16 07/16/20 10:26 BP 116/68 07/16/20 10:26 Pulse Ox 95 07/16/20 10:26 Discharge Plan Discharge Patient Disposition: Home Condition: Stable Prescriptions: New fluconazole 100 mg Tablet 100 mg PO DAILY Qty: 7 RF: 0 tamsulosin 0.4 mg Capsule 0.4 mg PO BEDTIME Qty: 30 RF: 0 cefdinir 300 mg Capsule 300 mg PO BID Qty: 10 RF: 0 Continued allopurinol 300 mg tablet 150 mg PO DAILY@2199 RF: 0 alprazolam 0.5 mg tablet 0.5 mg PO BEDTIME PRN (Reason: Anxiety) RF: 0 cyclobenzaprine 10 mg tablet 10 mg PO BID PRN (Reason: Pain) RF: 0 docusate sodium 100 mg capsule 200 mg PO DAILY@2199 RF: 0 epinephrine 0.15 mg/0.3 mL auto-injector 0.15 mg IM Q30M PRN (Reason: Allergy Symptoms) RF: 0 hydroxychloroquine 200 mg tablet 200 mg PO BID@ RF: 0 levothyroxine 150 mcg tablet 150 mcg PO DAILY@ RF: 0 montelukast 10 mg tablet 10 mg PO DAILY@2199 RF: 0 Movantik 25 mg tablet 25 mg PO DAILY@ RF: 0 pantoprazole 40 mg tablet,delayed release (DR/EC) 40 mg PO BID@ RF: 0 oxycodone-acetaminophen [Percocet] 7.5-325 mg tablet 1 tab PO QID PRN (Reason: Pain) RF: 0 promethazine 25 mg tablet 25 mg PO BID PRN (Reason: Nausea) RF: 0 Trulicity 0.75 mg/0.5 mL pen injector 0.5 mg SUBCUT Q7D RF: 0 cetirizine [Zyrtec] 10 mg tablet 10 mg PO DAILY PRN (Reason: Allergy Symptoms) RF: 0 gabapentin 400 mg Capsule 800 mg PO BID@ RF: 0 pramipexole 0.125 mg tablet 0.125 mg PO BEDTIME RF: 0 albuterol sulfate 90 mcg/actuation Hfa Aerosol Inhaler 2 puff INHALATION Q6H PRN (Reason: Shortness Of Breath) RF: 0 metformin 500 mg tablet,ER renetta.retention 24 hr 1,000 mg PO BID@ RF: 0 leucovorin calcium 10 mg tablet 10 mg PO Q7D RF: 0 methotrexate sodium (PF) 25 mg/mL solution 15 mg PO Q7D RF: 0 bupropion HCl 300 mg tablet extended release 24 hr 300 mg PO DAILY@ RF: 0 Discharge Orders: Discharge Order (Routine); Ordered 07/15/20 Ordered By: Vipul Gerardo Referrals: Vipul Gerardo MD [Physician] - 08/04/20 (Roughly 3 weeks with PVR and possible cystoscopy. [facility] will call you Friday to set up an appointment.) Discharge Diet: Usual diet Discharge Activity: Resume usual activity Patient Instructions: Kidney Stones (DC), Urinary Tract Infection in Women (DC) Activity Restrictions/Additional Instructions: UROLOGY instructions: 1. Please follow-up in my office in about 3 weeks for further evaluation of RECURRENT UTIs. We may perform a cystoscopy at that visit. 2. Please bring with you information regarding your prior urologic work-up specifically where and names of hospital or doctors so that we can obtain records. 3. As a reminder the stone was simply a variant of normal calcification that was NOT inside the ureter. No further work-up needs to be done regarding that finding. 4. As of recurrent stone former though there will be further discussion regarding prevention strategies during follow-up in my office. Discharge Attestations Time Spent in Discharge Care*: less than 30 min Quality Metrics Clinical Quality Measures During this hospital stay, did patient experience: None Coding Level of Care Code Acute [facility]g [facility] note Diagnoses Ureteral stone N20.1 UTI (urinary tract infection) N10 Urinary tract infection type: acute pyelonephritis Flank pain R10.9 Hypoglycemia E16.2
[2020-07-16 11:58] LABS: Basophils % 0.8 %; Eosinophils # 0.2 10^3/uL (0.0-0.8); Eosinophils % 5.9 %; Hematocrit 34.8 % (37.0-47.0); Hemoglobin 10.7 g/dL (11.5-15.3); Lymphocytes # 0.9 10^3/uL (0.8-4.8); Lymphocytes % 24.1 %; Mean Corpuscular HGB Conc 30.7 g/dL (30.0-36.0); Mean Corpuscular Hemoglobin 29.1 pg (28.0-34.0); Mean Corpuscular Volume 94.6 fL (81-99); Mean Platelet Volume 10.6 fL (7.4-10.4); Monocytes # 0.3 10^3/uL (0.2-0.9); Monocytes % 8.2 %; Neutrophils # 2.14 10^3/uL (1.8-7.7); Neutrophils % 60.7 %; Nucleated Red Blood Cells % 0 %; Platelet Count 220 10^3/cmm (130-400); Red Blood Count 3.68 10^6/uL (4.1-5.3); Red Cell Distribution Width 15.2 % (12.1-15.1); White Blood Count 3.5 10^3/uL (4.0-10.0)
[2020-07-16 12:20] LABS: Albumin Level 3.6 g/dL (3.5-5.2); Anion Gap 14.5 (5-19); Blood Urea Nitrogen 8 mg/dL (6-20); Calcium 8.4 mg/dL (8.5-10.5); Carbon Dioxide 23 mmol/L (22-29); Chloride 106 mmol/L (98-107); Glomerular Filtration Rate 87.2 mL/min (90-130); Glucose 97 mg/dL (65-115); Magnesium 1.8 mg/dL (1.7-2.3); Phosphorus 2.8 mg/dL (2.5-4.5); Potassium 4.5 mmol/L (3.5-5.1); Sodium 139 mmol/L (136-145)
[2020-07-16 13:55] VITALS: BP 116/68; PULSE 78; RESP 16; TEMP 36.8; O2SAT 95
== END 2020-07-16 13:55 | disposition home or self-care (01) | DRG 694 ==
PROVIDERS: Internal Medicine; Admitting Provider Internal Medicine; PCP Nurse Practitioner Family; Visit Provider Internal Medicine
DX: N20.1 Calculus of ureter (principal); N10 Acute pyelonephritis; D84.821 Immunodeficiency due to drugs; E11.649 Type 2 diabetes mellitus with hypoglycemia without coma; D64.9 Anemia, unspecified; M32.9 Systemic lupus erythematosus, unspecified; G89.29 Other chronic pain; M54.9 Dorsalgia, unspecified; M79.7 Fibromyalgia; K21.9 Gastro-esophageal reflux disease without esophagitis; E03.9 Hypothyroidism, unspecified; J45.909 Unspecified asthma, uncomplicated; M10.9 Gout, unspecified; Z79.891 Long term (current) use of opiate analgesic; Z79.84 Long term (current) use of oral hypoglycemic drugs; Z98.84 Bariatric surgery status; Z98.1 Arthrodesis status; Z87.440 Personal history of urinary (tract) infections; Z87.442 Personal history of urinary calculi
CPT/HCPCS: 36415; 36416; 74018; 80053; 80069; 82962; 83735; 85025; 87040; 87086; 96372; J0696; J1650; J1815; J2270

== ENCOUNTER 2020-07-18 08:04 | Outpatient (CLI) | payer MEDICARE, MEDICAID, SELFPAY ==
--- NOTE | 2020-07-18 08:15 | MR_ITS ---
WS: [id number] MRI CERVICAL SPINE NONCONTRAST HISTORY: M54.2 - Cervicalgia COMPARISON: Cervical spine 07/07/2020 Technique: Multiplanar, multisequence noncontrast imaging of the cervical spine. Prior anterior cervical fusion at C5-6 with interbody spacer. No marrow edema or fractures. Alignment is normal. Signal within the cervical cord is normal. Visualized posterior fossa is unremarkable. Craniocervical junction, C1 and C2 relationship, odontoid process and soft tissues are normal. C2-C3: Normal. C3-C4: Shallow central disc protrusion. No cord contact. C4-C5: Mild annular disc bulging with small central disc protrusion. No contact on the cord. No signi ficant foraminal stenosis. C5-C6: Mild osteophytic ridging. No stenosis. C6-C7: Very shallow central disc protrusion. No stenosis. C7-T1: Small disc protrusion or osteophyte. No contact on the cord. No significant stenosis. Paraspinal soft tissue are normal. MR/MR cervical spin wo con* [id number] IMPRESSION: 1. Prior anterior cervical fusion at C5-6 with interbody spacer. No complicati ons evident. 2. Central disc protrusions at C3-4, C4-5 and C6-7. No cord contact or signifi cant stenosis.
== END 2020-07-18 08:05 | disposition home or self-care (01) ==
LOC: RADWPI 08:12
PROVIDERS: PCP Nurse Practitioner Family; Visit Provider Orthopaedic Surgery
DX: M43.22 Fusion of spine, cervical region (principal); M50.21 Other cervical disc displacement, high cervical region
CPT/HCPCS: 72110; 72141

== ENCOUNTER → 2020-08-09 08:52 | Outpatient (BNVA) | payer MEDICARE, MEDICAID, SELFPAY | PROVIDERS: PCP Nurse Practitioner Family; Referring Provider Orthopaedic Surgery; Visit Provider Anesthesiology | DX: G89.29 Other chronic pain (principal); M48.02 Spinal stenosis, cervical region; M19.90 Unspecified osteoarthritis, unspecified site; M54.9 Dorsalgia, unspecified; M32.9 Systemic lupus erythematosus, unspecified; M25.519 Pain in unspecified shoulder; Z98.1 Arthrodesis status; Z79.891 Long term (current) use of opiate analgesic | CPT/HCPCS: 99204; 99205 ==

== ENCOUNTER → 2020-09-14 13:37 | Outpatient (BNVA) | payer MEDICARE, MEDICAID, SELFPAY | PROVIDERS: PCP Nurse Practitioner Family; Visit Provider Anesthesiology | DX: G89.29 Other chronic pain (principal); M54.41 Lumbago with sciatica, right side; M54.42 Lumbago with sciatica, left side; M54.9 Dorsalgia, unspecified; M48.02 Spinal stenosis, cervical region; Z98.1 Arthrodesis status; Z79.891 Long term (current) use of opiate analgesic | CPT/HCPCS: 99214 ==

== ENCOUNTER 2020-10-02 12:52 | Outpatient (CLI) | payer MEDICARE, MEDICAID, SELFPAY ==
--- NOTE | 2020-10-02 12:59 | MR_ITS ---
WS: [id number] MRI THORACIC SPINE WITHOUT CONTRAST TECHNIQUE: Sagittal T1, T2 and STIR imaging. Axial T2 imaging. Noncontrast imaging obtained. CLINICAL INFORMATION: THORACIC BACK PAIN COMPARISON: None. FINDINGS: Mild thoracic curve. No acute compression. No high-grade central canal stenosis. Mild disc space narr owing in the mid thoracic spine. A few Schmorl's nodes in the lower thoracic spine. Cord signal is no rmal. Normal paravertebral soft tissues. Tiny disc protrusions more prominent at T5-6, T6-7, T8-9, T1 0-11, and T11-12. Mild central canal stenosis at T10-11 with a small left pericentral protrusion and moderate facet art hropathy. Moderate facet arthropathy lower thoracic spine. Moderate right T9-10 and left greater than right T10-11 bony foraminal narrowing. Normal caliber thoracic aorta. Adrenal glands are normal. Postoperative changes partially visualized in the cervical spine. MR/MR thoracic spin wo con* [id number] IMPRESSION: 1. Mild thoracic curve. Mild thoracic kyphosis. No acute compression fractures . 2. No high-grade central canal stenosis. Cord signal is normal. 3. A few small disc protrusions in the mid and lower thoracic spine described above. 4. Mild central canal stenosis T10-11 with a small shallow left pericentral pr otrusion and moderate facet arthropathy with ligamentum flavum flavum hypertrop hy. 5. Mild bony foraminal narrowing described above.
== END 2020-10-02 12:53 | disposition home or self-care (01) ==
PROVIDERS: PCP Nurse Practitioner Family; Visit Provider Nurse Practitioner Family
DX: M48.04 Spinal stenosis, thoracic region (principal); M40.294 Other kyphosis, thoracic region; M51.24 Other intervertebral disc displacement, thoracic region; M47.814 Spondylosis without myelopathy or radiculopathy, thoracic region
CPT/HCPCS: 72146

== ENCOUNTER → 2020-10-24 09:39 | Outpatient (BNVA) | payer MEDICARE, MEDICAID, SELFPAY | PROVIDERS: PCP Nurse Practitioner Family; Referring Provider Nurse Practitioner Family; Visit Provider Orthopaedic Surgery | DX: M54.9 Dorsalgia, unspecified (principal); G89.29 Other chronic pain | CPT/HCPCS: 72072; 72110 ==

== ENCOUNTER 2020-10-27 16:18 | Emergency (ER) | payer MEDICARE, MEDICAID, SELFPAY ==
[2020-10-27 16:31] VITALS: BP 124/83; PULSE 73; RESP 15; TEMP 36.7; O2SAT 100; BMI 34.7
--- NOTE | 2020-10-27 16:37 | XRR_ITS ---
PROCEDURE INFORMATION: Exam: XR Right Finger(s) Exam date and time: 10/27/2020 4:37 PM Age: 55 years old Clinical indication: Pain; Finger(s); Right; Additional info: Index finger TECHNIQUE: Imaging protocol: XR Right fingers. Views: Minimum 2 views. COMPARISON: No relevant prior studies available. FINDINGS: Bones/joints: Normal. Soft tissues: Normal. XR/XR finger RT min 2V [id number] IMPRESSION: No acute findings.
== END 2020-10-27 17:14 | disposition left against medical advice (07) ==
LOC: ER 16:37
PROVIDERS: PCP Nurse Practitioner Family
DX: Z53.21 Procedure and treatment not carried out due to patient leaving prior to being seen by health care provider (principal)
CPT/HCPCS: 73140

== ENCOUNTER 2020-10-30 09:38 | Outpatient (CLI) | payer MEDICARE, MEDICAID, SELFPAY ==
--- NOTE | 2020-10-30 09:57 | MR_ITS ---
WS: [id number] MRI LUMBAR SPINE NONCONTRAST TECHNIQUE: Sagittal T1, T2 and STIR imaging. Axial T1 and T2 imaging. CLINICAL INFORMATION: DORSALGIA COMPARISON: None. FINDINGS: Mild lumbar curve. No acute compression. Pedicle screw fixation L4-5 with interbody fusion. Slight an terolisthesis L4 on L5. Laminectomy defects in the lower lumbar spine and L3-L5. No high-grade centra l canal stenosis. L1-L2: Normal. L2-L3: No significant disc bulging. Spinal canal and foramen are patent. Mild facet arthropathy. L3-L4: Mild annular bulging with slight effacement of the ventral thecal sac. Narrowing of the subart icular recess. Mild central canal stenosis. Moderate facet arthropathy. Mild right greater than left bony foraminal narrowing. L4-L5: Prior postoperative changes pedicle screw fixation with interbody fusion. Slight anterolisthes is L4 on L5. Laminectomy defects. Spinal canal and foramen are patent. L5-S1: Pedicle screw fixation L5. Minimal disc bulging with osteophytic ridging. Mild right and no si gnificant left foraminal narrowing. Moderate facet arthropathy. Postoperative changes C5-6 and cervical spine. Visualized pelvic bony structures: Normal. Paravertebral soft tissues: Normal. MR/MR lumbar spine wo con* [id number] IMPRESSION: 1. Mild lumbar curve. No acute compression. Pedicle screw fixation L4-5 with i nterbody fusion graft. Slight anterolisthesis L4 on L5. 2. Mild disc bulging L3-4 with moderate to advanced facet arthropathy. Mild ce ntral canal stenosis with narrowing of the subarticular recess at this level. M ild right greater than left foraminal narrowing. 3. Spinal canal is patent at L4-L5 and L5-S1. 4. Mild right bony foraminal narrowing L5-S1.
== END 2020-10-30 09:39 | disposition home or self-care (01) ==
PROVIDERS: PCP Nurse Practitioner Family; Visit Provider Orthopaedic Surgery
DX: M51.26 Other intervertebral disc displacement, lumbar region (principal)
CPT/HCPCS: 72148

== ENCOUNTER → 2020-11-14 13:33 | Outpatient (BNVA) | payer MEDICARE, MEDICAID, SELFPAY | PROVIDERS: PCP Nurse Practitioner Family; Visit Provider Anesthesiology | DX: G89.29 Other chronic pain (principal); M48.02 Spinal stenosis, cervical region; M54.5 Low back pain; Z98.1 Arthrodesis status; Z79.891 Long term (current) use of opiate analgesic | CPT/HCPCS: 99214 ==

== ENCOUNTER → 2020-11-21 15:06 | Outpatient (BNVA) | payer MEDICARE, MEDICAID, SELFPAY | PROVIDERS: PCP Nurse Practitioner Family; Visit Provider Specialist | DX: M54.9 Dorsalgia, unspecified (principal); G89.29 Other chronic pain; R20.0 Anesthesia of skin; R20.2 Paresthesia of skin; Z98.1 Arthrodesis status | CPT/HCPCS: 95913 ==

== ENCOUNTER → 2020-12-01 09:29 | Outpatient (BNVA) | payer MEDICARE, MEDICAID, SELFPAY | PROVIDERS: PCP Nurse Practitioner Family; Visit Provider Nurse Practitioner Family | DX: J06.9 Acute upper respiratory infection, unspecified (principal) | CPT/HCPCS: 87635 ==

== ENCOUNTER 2020-12-04 08:32 | Day surgery (SDC) | payer MEDICARE, MEDICAID, SELFPAY ==
[2020-12-01 08:12] VITALS: BMI 33.8
--- NOTE | 2020-12-04 08:53 | ANES.PREANE2 ---
Pre-Anesthetic Assessment Pre-Anesthetic Assessment: Height/Weight: Height 1.57 m Weight 83.915 kg Proposed Procedure: Operation Date: 12/04/20 10:00 Proposed Procedures p EGD Dilation W/ Bougie 11810 r13.10(Not Applicable) - Martell Johnston MD Was Beta Allison taken within 24 hours: N/A Was Clonidine taken within 24 hours: N/A Social: Social History: No alcohol and No tobacco Airway: Submandibular: WNL Cervical ROM: WNL MP: 2 Dentition: Full GI: GI: GERD Metabolic: Metabolic: Morbid obesity and Thyroid Musc/skel: Comments: SLE Neuropsych: Neuropsych: Anxiety, Depression and Neuropathy Anesthetic Plan: ASA status: 3 Anesthesia: MAC PFSH Anesthesia PFSH: Medical History Anemia Asthma Chronic back pain Chronic pain Chronic shoulder pain Diabetes mellitus Fibromyalgia GERD (gastroesophageal reflux disease) Gout Hypothyroidism Laceration of right lower leg Lupus (systemic lupus erythematosus) Nephrolithiasis Osteoarthritis PTSD (post-traumatic stress disorder) Spinal stenosis Stricture of esophagus Urolithiasis History of recurrent stones. No obstructing stones identified during admission 07/14/2020 Surgical History Gastric bypass status for obesity History of carpal tunnel surgery History of cholecystectomy History of fusion of cervical spine History of lumbar spinal fusion History of shoulder surgery History of spinal fusion Cervical and lumbar History of tonsillectomy History of tubal ligation Family History Sister Cancer Mother Diabetes Heart disease Grandfather Diabetes Grandmother Diabetes Father Heart disease Social History Smoking and tobacco status: never smoked Second hand smoke exposure: No Alcohol intake: never Adopted: No Marital status: Single Number of children: 2 service: No History of recent travel: No Data Anesthesia Cardiac Studies: No Data to Display
--- NOTE | 2020-12-04 09:17 | P.HP_ITS ---
Same Day Surgery H&P Indication for Procedure/HPI DATE OF PROCEDURE: December 04, 2020 CHIEF COMPLAINT/INDICATIONFOR SURGICAL PROCEDURE: Dysphagia PREOP DIAGNOSIS: Dysphagia PLANNED PROCEDRUE: Operation Date: 12/04/20 10:00 Proposed Procedures p EGD Dilation W/ Bougie 95139 r13.10(Not Applicable) - Martell Johnston MD Medications/Allergies* Home Medications Medication Instructions Recorded Confirmed Type allopurinol 300 mg tablet 150 mg PO DAILY@219905/16/20 12/01/20 History alprazolam 0.5 mg tablet 0.5 mg PO BEDTIME PRN 05/16/20 12/01/20 History cetirizine 10 mg tablet 10 mg PO DAILY PRN 05/16/20 12/01/20 History cyclobenzaprine 10 mg tablet 10 mg PO BID PRN tab 05/16/20 12/01/20 History docusate sodium 100 mg capsule 200 mg PO DAILY@2199 cap 05/16/20 12/01/20 History dulaglutide 0.75 mg/0.5 mL 0.5 mg SUBCUT Q7D ml 05/16/20 12/01/20 History subcutaneous pen injector epinephrine 0.15 mg/0.3 mL 0.15 mg IM Q30M PRN 05/16/20 12/01/20 History injection,auto-injector hydroxychloroquine 200 mg tablet 200 mg PO BID@05/16/20 12/01/20 History montelukast 10 mg tablet 10 mg PO DAILY@219905/16/20 12/01/20 History pantoprazole 40 mg tablet,delayed 40 mg PO BID@ tab 05/16/20 12/01/20 History release promethazine 25 mg tablet 25 mg PO BID PRN tab 05/16/20 12/01/20 History albuterol sulfate 2 puff INHALATION Q6H PRN 05/25/20 12/01/20 History pramipexole 0.125 mg PO BEDTIME 05/25/20 12/01/20 History metformin 500 mg 24 hr 1,000 mg PO BID@07/07/20 12/01/20 History tablet,extended release bupropion HCl 300 mg PO DAILY@07 07/15/20 12/01/20 History leucovorin calcium 10 mg PO Q7D 07/15/20 12/01/20 History methotrexate sodium (PF) 15 mg PO Q7D 07/15/20 12/01/20 History levothyroxine 150 mcg tablet 137 mcg PO DAILY@07 tab 11/21/20 12/01/20 History Allergies/Adverse Reactions Allergy/AdvReac Type Severity Reaction Status Date / Time celecoxib [From Celebrex] Allergy Intermediate Unknown Verified 11/22/20 13:16 hylan G-F 20 [From Synvisc] Allergy Intermediate unknown Verified 11/22/20 13:16 nitrofurantoin Allergy Intermediate unknown Verified 11/22/20 13:16 [From Macrobid] NSAIDS (Non-Steroidal Allergy Intermediate unknown Verified 11/22/20 13:16 Anti-Inflamma ropinirole Allergy Intermediate unknown Verified 11/22/20 13:16 Sulfa (Sulfonamide Allergy Intermediate Unknown Verified 11/22/20 13:16 Antibiotics) Pertinent History/Comorbid Conditions* Medical History (Updated 11/24/20 @ 15:52 by Virginia Brooks MD) Anemia Asthma Chronic back pain Chronic pain Chronic shoulder pain Diabetes mellitus Fibromyalgia GERD (gastroesophageal reflux disease) Gout Hypothyroidism Laceration of right lower leg Lupus (systemic lupus erythematosus) Nephrolithiasis Osteoarthritis PTSD (post-traumatic stress disorder) Spinal stenosis Stricture of esophagus Urolithiasis History of recurrent stones. No obstructing stones identified during admission 07/14/2020 Surgical History (Updated 08/09/20 @ 10:58 by Jayjay Logan MD) Gastric bypass status for obesity History of carpal tunnel surgery History of cholecystectomy History of fusion of cervical spine History of lumbar spinal fusion History of shoulder surgery History of spinal fusion Cervical and lumbar History of tonsillectomy History of tubal ligation Family History (Updated 06/05/20 @ 15:14 by AMARJIT Reed) Diabetes Mother Grandfather Grandmother Heart disease Mother Father Cancer Sister Social History Smoking and tobacco status: never smoked Second hand smoke exposure: No Alcohol intake: never Adopted: No Marital status: Single Number of children: 2 service: No History of recent travel: No Pertinent Exam Findings alert, oriented x 3, clear to auscultation bilaterally, regular rate & rhythm, operative site marked and procedure specific exam findings Recommendations Surgery/Procedure today Coding Level of Care Code Acute [employer] for Pinedag Sommer
[2020-12-04 09:30] VITALS: BP 118/73; PULSE 62; RESP 18; TEMP 37.1; O2SAT 100
[2020-12-04 09:58] LABS: Glucose Point of Care 106 mg/dL (70-110)
[2020-12-04] MEDS: sodium chloride 0.9% 1,000 ML 30 ML IV (10:03)
[2020-12-04 10:46] VITALS: BP 114/65; PULSE 60; RESP 18; TEMP 36.4; O2SAT 99
--- NOTE | 2020-12-04 15:31 | ANE.PACU2 ---
Inpatient post-anesthesia follow up: Airway intact: Yes Vital signs: Temperature 97.6 F Pulse Rate 60 Respiratory Rate 18 Blood Pressure 114/65 Pulse Oximetry 99 Oxygen Delivery Me thod Nasal Cannula Oxygen Flow Rate 4 Fraction of Inspir ed Oxygen Hydration adequate: Yes Nausea and vomiting: No Pain level: 1 Mental status: Baseline
== END 2020-12-04 11:30 | disposition home or self-care (01) ==
PROVIDERS: PCP Nurse Practitioner Family; Visit Provider Internal Medicine
DX: R13.10 Dysphagia, unspecified (principal); K29.70 Gastritis, unspecified, without bleeding; Z98.84 Bariatric surgery status; J45.909 Unspecified asthma, uncomplicated; E11.9 Type 2 diabetes mellitus without complications; M79.7 Fibromyalgia; K21.9 Gastro-esophageal reflux disease without esophagitis; E03.9 Hypothyroidism, unspecified; M19.90 Unspecified osteoarthritis, unspecified site; Z98.1 Arthrodesis status; Z82.49 Family history of ischemic heart disease and other diseases of the circulatory system; Z83.3 Family history of diabetes mellitus; E66.01 Morbid (severe) obesity due to excess calories; Z68.33 Body mass index [BMI] 33.0-33.9, adult; F41.9 Anxiety disorder, unspecified; F32.9 Major depressive disorder, single episode, unspecified
CPT/HCPCS: 36416; 43235; 82962; 96360; J7030

== ENCOUNTER → 2020-12-28 14:37 | Outpatient (BNVA) | payer MEDICARE, MEDICAID, SELFPAY | PROVIDERS: PCP Nurse Practitioner Family; Visit Provider Psychiatry & Neurology Psychiatry | DX: F60.3 Borderline personality disorder (principal); F43.12 Post-traumatic stress disorder, chronic; F33.2 Major depressive disorder, recurrent severe without psychotic features; F41.1 Generalized anxiety disorder | CPT/HCPCS: 99204 ==

== ENCOUNTER → 2021-01-10 07:52 | Outpatient (BNVA) | payer MEDICARE, MEDICAID, SELFPAY | PROVIDERS: PCP Nurse Practitioner Family; Visit Provider Anesthesiology | DX: G89.29 Other chronic pain (principal); M54.5 Low back pain; M48.02 Spinal stenosis, cervical region; M19.90 Unspecified osteoarthritis, unspecified site; Z98.1 Arthrodesis status; Z79.891 Long term (current) use of opiate analgesic | CPT/HCPCS: 99214 ==

== ENCOUNTER → 2021-01-12 09:03 | Outpatient (BNVA) | payer MEDICARE, MEDICAID, SELFPAY | PROVIDERS: PCP Nurse Practitioner Family; Referring Provider Nurse Practitioner Family; Visit Provider Internal Medicine | DX: E03.9 Hypothyroidism, unspecified (principal); N20.0 Calculus of kidney; Z79.891 Long term (current) use of opiate analgesic | CPT/HCPCS: 99204 ==

== ENCOUNTER 2021-01-17 10:11 | Outpatient (CLI) | payer MEDICARE, MEDICAID, SELFPAY ==
[2021-01-17 11:51] LABS: Thyroid Stimulating Hormone 29.58 uIU/mL (0.27-4.20)
[2021-01-17 11:53] LABS: Calcium 8.8 mg/dL (8.5-10.5)
[2021-01-17 12:00] LABS: Parathyroid Hormone 65.6 pg/mL (15-65)
[2021-01-17 12:20] LABS: Estmated Average Glucose 105; Hemoglobin A1C 5.3 % (4.0-6.0)
== END 2021-01-17 10:12 | disposition home or self-care (01) ==
LOC: LAB 10:26
PROVIDERS: PCP Nurse Practitioner Family; Visit Provider Internal Medicine
DX: E03.9 Hypothyroidism, unspecified (principal); Z79.891 Long term (current) use of opiate analgesic
CPT/HCPCS: 36415; 82310; 83036; 83970; 84439; 84443

== ENCOUNTER → 2021-03-01 07:54 | Outpatient (BNVA) | payer MEDICARE, MEDICAID, SELFPAY | PROVIDERS: PCP Family Medicine; Visit Provider Anesthesiology | DX: G89.29 Other chronic pain (principal); M48.02 Spinal stenosis, cervical region; M54.9 Dorsalgia, unspecified; M19.90 Unspecified osteoarthritis, unspecified site; Z98.1 Arthrodesis status; Z79.891 Long term (current) use of opiate analgesic | CPT/HCPCS: 99214 ==

== ENCOUNTER → 2021-04-12 08:09 | Outpatient (BNVA) | payer MEDICARE, MEDICAID, SELFPAY | PROVIDERS: PCP Family Medicine; Visit Provider Anesthesiology | DX: M48.02 Spinal stenosis, cervical region (principal); Z98.1 Arthrodesis status; Z79.891 Long term (current) use of opiate analgesic | CPT/HCPCS: 62321; J1040; J3490 ==

== ENCOUNTER → 2021-04-26 08:16 | Outpatient (BNVA) | payer MEDICARE, MEDICAID, SELFPAY | PROVIDERS: PCP Family Medicine; Visit Provider Internal Medicine Rheumatology | DX: M32.9 Systemic lupus erythematosus, unspecified (principal); M19.90 Unspecified osteoarthritis, unspecified site; Z79.899 Other long term (current) drug therapy; Z71.85 Encounter for immunization safety counseling; M79.7 Fibromyalgia; D64.9 Anemia, unspecified; M20.42 Other hammer toe(s) (acquired), left foot; M20.41 Other hammer toe(s) (acquired), right foot; Z79.52 Long term (current) use of systemic steroids | CPT/HCPCS: 99204 ==

== ENCOUNTER → 2021-04-27 08:06 | Outpatient (BNVA) | payer MEDICARE, MEDICAID, SELFPAY | PROVIDERS: PCP Family Medicine; Visit Provider Anesthesiology | DX: G89.29 Other chronic pain (principal); M48.02 Spinal stenosis, cervical region; M54.12 Radiculopathy, cervical region; M54.50 Low back pain, unspecified; Z98.1 Arthrodesis status; Z79.891 Long term (current) use of opiate analgesic; Z79.899 Other long term (current) drug therapy | CPT/HCPCS: 99214 ==

== ENCOUNTER → 2021-04-30 08:26 | Outpatient (BNVA) | payer MEDICARE, MEDICAID, SELFPAY | PROVIDERS: PCP Family Medicine; Visit Provider Internal Medicine | DX: E21.3 Hyperparathyroidism, unspecified (principal); E03.9 Hypothyroidism, unspecified; E11.9 Type 2 diabetes mellitus without complications; N20.0 Calculus of kidney; Z79.891 Long term (current) use of opiate analgesic | CPT/HCPCS: 99214 ==

== ENCOUNTER 2021-05-24 09:21 | Outpatient (CLI) | payer MEDICARE, MEDICAID, SELFPAY ==
[2021-05-24 10:19] LABS: Basophils % 0.5 %; Eosinophils # 0.1 10^3/uL (0.0-0.8); Hematocrit 35.4 % (37.0-47.0); Hemoglobin 10.7 g/dL (11.5-15.3); Lymphocytes # 0.7 10^3/uL (0.8-4.8); Lymphocytes % 9.2 %; Mean Corpuscular HGB Conc 30.2 g/dL (30.0-36.0); Mean Corpuscular Volume 85.9 fl (81-99); Mean Platelet Volume 10.8 fL (7.4-10.4); Monocytes # 0.2 10^3/uL (0.2-0.9); Neutrophils # 6.82 10^3/uL (1.8-7.7); Nucleated Red Blood Cells % 0 %; Platelet Count 311 10^3/cmm (130-400); Red Blood Count 4.12 10^6/uL (4.1-5.3); White Blood Count 7.9 10^3/uL (4.0-10.0)
[2021-05-24 10:30] LABS: Erythrocyte Sedimentation Rate 17 mm/hr (0-15)
[2021-05-24 10:31] LABS: Bilirubin Urine Neg (Negative); Blood Urine Neg (Negative); Glucose Urine UA Norm (Normal); Ketones Urine Negative (Negative); Leukocyte Esterase Urine 2+ (Negative); Nitrate Urine Negative (Negative); Protein Urine Neg (Negative); Urine Appearance Clear (CLEAR); Urine Color Yellow (Yellow); Urobilinogen Urine Norm (Negative); pH Urine 5 (5-7)
[2021-05-24 10:37] LABS: Add Urine Culture? No; Bacteria Urine 1+ /hpf; RBC Urine 0-4 /hpf (0-2)
[2021-05-24 10:46] LABS: Alanine Aminotransferase 19 U/L (0-33); Albumin Level 4.4 g/dL (3.5-5.2); Alkaline Phosphatase 95 IU/L (35-105); Aspartate Amino Transferase 19 U/L (0-32); Globulin 2.9 g/dL (1.3-4.6); Glomerular Filtration Rate 86.9 mL/min (90-130); Total Bilirubin 0.4 mg/dL (0.15-1.2); Total Protein 7.3 g/dL (6.6-8.7)
[2021-05-24 10:49] LABS: Urine Creatinine 107 mg/dL (28-217); Urine Protein Random 7 mg/dL
[2021-05-24 11:02] LABS: 25 Hydroxy Vitamin D 80 ng/mL (30-100)
[2021-05-24 11:06] LABS: Hepatitis B Core AB, Total Non-Reactive (Nonreactive); Hepatitis B Surface Antigen Non-Reactive (Nonreactive); Hepatitis C Virus Antibody Non-Reactive (Nonreactive)
[2021-05-28 13:33] LABS: Quantiferon Mitogen 2.26 IU/mL; Quantiferon Nil 0.01 IU/mL; Quantiferon TB Gold NEGATIVE (NEGATIVE)
== END 2021-05-24 09:22 | disposition home or self-care (01) ==
PROVIDERS: PCP Family Medicine; Visit Provider Internal Medicine Rheumatology
DX: M19.90 Unspecified osteoarthritis, unspecified site (principal); M32.9 Systemic lupus erythematosus, unspecified; Z11.59 Encounter for screening for other viral diseases; Z79.899 Other long term (current) drug therapy; Z11.1 Encounter for screening for respiratory tuberculosis
CPT/HCPCS: 36415; 80076; 81001; 82306; 82565; 82570; 84156; 85025; 85651; 86140; 86480; 86704; 86803; 87340

== ENCOUNTER → 2021-07-25 08:19 | Outpatient (BNVA) | payer MEDICARE, MEDICAID, SELFPAY | PROVIDERS: PCP Family Medicine; Visit Provider Internal Medicine | DX: E11.9 Type 2 diabetes mellitus without complications (principal); E21.3 Hyperparathyroidism, unspecified; E03.9 Hypothyroidism, unspecified; N20.0 Calculus of kidney; Z79.891 Long term (current) use of opiate analgesic; Z79.899 Other long term (current) drug therapy | CPT/HCPCS: 99214 ==

== ENCOUNTER → 2021-09-06 08:36 | Outpatient (BNVA) | payer MEDICARE, MEDICAID, SELFPAY | PROVIDERS: PCP Family Medicine; Visit Provider Orthopaedic Surgery | DX: M48.062 Spinal stenosis, lumbar region with neurogenic claudication (principal); Z98.1 Arthrodesis status | CPT/HCPCS: 99214 ==

== ENCOUNTER → 2021-09-24 14:03 | Outpatient (BNVA) | payer MEDICARE, MEDICAID, SELFPAY | PROVIDERS: PCP Family Medicine; Visit Provider Internal Medicine Rheumatology | DX: M32.9 Systemic lupus erythematosus, unspecified (principal); M79.7 Fibromyalgia; M19.90 Unspecified osteoarthritis, unspecified site; Z79.899 Other long term (current) drug therapy; Z71.85 Encounter for immunization safety counseling | CPT/HCPCS: 99214 ==

== ENCOUNTER → 2021-10-02 07:51 | Outpatient (BNVA) | payer MEDICARE, MEDICAID, SELFPAY | PROVIDERS: PCP Family Medicine; Visit Provider Orthopaedic Surgery | DX: M54.12 Radiculopathy, cervical region (principal); Z98.1 Arthrodesis status | CPT/HCPCS: 72050; 99213; 99214 ==

== ENCOUNTER 2021-10-10 08:08 | Inpatient (IN) | payer MEDICARE, MEDICAID, SELFPAY ==
[2021-10-09 08:08] VITALS: BMI 35.6
--- NOTE | 2021-10-09 08:41 | ANES.PREANE2 ---
Pre-Anesthetic Assessment Height/Weight: Height 1.57 m Weight 88.451 kg Preop Diagnosis: Chronic back pain w/ stenosis and neurogenic claudication Operation Date: 10/10/21 07:00 Proposed Procedures p Posterior Lumbar Interbody Fusion L3/5 w/revision L4/5 [id number]/[id number]/[id number]/93520/00544/M48.062(Not Applicable) - Wilner Huang, Familial anesthetic complications: none Was Beta Allison taken within 24 hours: N/A Social No alcohol and No tobacco Exam alert, oriented x 3, clear to auscultation bilaterally and regular rate & rhythm Airway Submandibular: within normal limits Cervical ROM: Other (Limited extension ) Mallampati: Class III Dentition: chipped (Chipped upper central incisor ) Pulmonary Asthma (well controlled, hospitalized for asthma 30 years ago ) CV/HEM Anemia SLE (LUPUS) METS = 4 Nephrolithiasis Hepatic None reported GI Gastroesophageal Reflux Disease s/p gastric bypass dysphagia requiring yearly balloon dilations for esophageal stricture Metabolic Diabetes Mellitus and Thyroid Disease (Hypothyroid ) Hyperparathyroidism Musc/skel Fibromyalgia and Osteoarthritis/DJD Gout Inflammatory arthritis Neuropsych Anxiety and Depression Borderline personality disorder Anesthetic Plan ASA status: 3 Anesthesia: Anesthesia Evaluation Other: We discussed risk and benefits of general anesthesia including PONV, sore throat (sometimes severe), corneal abrasion, positioning and peripheral nerve injuries, life threatening allergic reaction, post operative ICU admission requiring prolonged intubation, aspiration, stroke, heart attack, , and rare incidences of recall. Patient consents to proceed with general anesthesia. Risk of > 500 ml blood loss (7ml/kg in children): No Medications/Allergies Home Medications Medication Instructions Recorded Confirmed Last Taken Type cetirizine 10 mg tablet (Zyrtec) 10 mg PO DAILY PRN 05/16/20 10/09/21 12/03/20 History docusate sodium 100 mg capsule 200 mg PO DAILY@2200 cap 05/16/20 10/09/21 12/03/20 History epinephrine 0.15 mg/0.3 mL 0.15 mg IM Q30M PRN 05/16/20 10/09/21 Unknown History injection,auto-injector montelukast 10 mg tablet 10 mg PO DAILY@2200 05/16/20 10/09/21 12/03/20 History promethazine 25 mg tablet 25 mg PO BID PRN tab 05/16/20 10/09/21 Unknown History albuterol sulfate 90 mcg/actuation 2 puff INHALATION Q6H PRN 05/25/20 10/09/21 12/01/20 History aerosol inhaler bupropion HCl 300 mg 24 hr tablet, 300 mg PO DAILY@07 07/15/20 10/09/21 12/03/20 History extended release diclofenac sodium 1 % topical gel 4 g TOPICAL QID 30 Days #300 g 01/10/21 10/09/21 Unknown Rx levothyroxine 150 mcg tablet 150 mcg PO DAILY #90 tab 01/23/21 10/09/21 Unknown Rx dulaglutide 0.75 mg/0.5 mL 0.5 mg (0.3333 mL) SUBCUT Q7D #2 ml 01/29/21 10/09/21 Unknown Rx subcutaneous pen injector (Trulicity) cholecalciferol (vitamin D3) 50 50 mcg PO DAILY 04/26/21 10/09/21 Unknown History mcg (2,000 unit) capsule hydroxychloroquine 200 mg tablet 200 mg PO BID@0 #60 tab 04/26/21 10/09/21 Unknown Rx magnesium 100 mg tablet 100 mg PO DAILY 04/26/21 10/09/21 Unknown History valacyclovir 1 tab PO DAILY 04/26/21 10/09/21 Unknown History vitamin B comp and C no.3 15 mg-10 1 cap PO DAILY 04/26/21 10/09/21 Unknown History mg-50 mg-5 mg-300 mg capsule (B Complex Plus Vitamin C) naloxegol 25 mg tablet (Movantik) 25 mg PO DAILY@07 30 Days #30 tab 04/27/21 10/09/21 Unknown Rx oxycodone-acetaminophen 7.5 mg-325 1 tab PO QID PRN 30 Days #120 tab 04/27/21 10/09/21 Unknown Rx mg tablet belimumab 200 mg/mL subcutaneous 200 mg SUBCUT .Q7days #4 ml 09/24/21 10/09/21 Unknown Rx syringe (Benlysta) pantoprazole 40 mg tablet,delayed See Rx Instructions .ROUTE 10/08/21 10/09/21 Unknown Rx release .COMPLEX #60 tab allopurinol 300 mg tablet 300 mg PO DAILY 10/09/21 10/09/21 Unknown History alprazolam 0.5 mg tablet 0.25 - 0.5 mg PO QPM PRN 10/09/21 10/09/21 Unknown History methocarbamol 750 mg tablet 750 mg PO TID PRN 10/09/21 10/09/21 Unknown History pramipexole 0.125 mg tablet 0.125 mg PO BEDTIME 10/09/21 10/09/21 Unknown History prednisone 10 mg tablet See Rx Instructions PO DAILY PRN 10/09/21 10/09/21 Unknown History Allergies Allergy/AdvReac Type Severity Reaction Status Date / Time Sulfa (Sulfonamide Allergy Severe anaphylactic Verified 10/09/21 08:01 Antibiotics) pt states zonisamide Allergy Severe Throat Verified 10/09/21 08:01 swelled, neck & chest belt like they were burning. celecoxib [From Celebrex] Allergy Intermediate Unknown Verified 10/09/21 08:01 hylan G-F 20 [From Synvisc] Allergy Intermediate unknown Verified 10/09/21 08:01 nitrofurantoin Allergy Intermediate unknown Verified 10/09/21 08:01 [From Macrobid] NSAIDS (Non-Steroidal Allergy Intermediate unknown Verified 10/09/21 08:01 Anti-Inflamma ropinirole Allergy Intermediate unknown Verified 10/09/21 08:01 latex Allergy if left on Verified 10/09/21 08:01 too long causes red skin methotrexate Allergy anemia Verified 10/09/21 08:01 [facility] Anesthesia Medical History Anemia Anxiety Asthma Chronic back pain Chronic pain Chronic shoulder pain Depression Diabetes mellitus Encounter for long-term opiate analgesic use Fibromyalgia GERD (gastroesophageal reflux disease) Gout High risk medication use Hypothyroidism Immunization counseling Immunization counseling Inflammatory arthritis Joint pain Laceration of right lower leg Lupus (systemic lupus erythematosus) Nephrolithiasis Osteoarthritis Psychiatric care PTSD (post-traumatic stress disorder) SLE (systemic lupus erythematosus related syndrome) Spinal stenosis Stricture of esophagus Urolithiasis History of recurrent stones. No obstructing stones identified during admission 07/14/2020 Surgical History Gastric bypass status for obesity History of carpal tunnel surgery History of cholecystectomy History of fusion of cervical spine History of lumbar spinal fusion History of partial knee replacement History of shoulder surgery History of spinal fusion Cervical and lumbar History of tonsillectomy History of tubal ligation Status post fusion of wrist Family History Sister Cancer Mother Diabetes Heart disease Grandfather Diabetes Grandmother Diabetes Father Heart disease Other CAD (coronary artery disease) Clotting disorder Hypertension Stroke Denies family history of Hyperlipidemia Chronic kidney disease (CKD) Lung disease Social History Smoking and tobacco status: never smoked Second hand smoke exposure: No Alcohol intake: never Adopted: No Marital status: Single Number of children: 2 service: No History of recent travel: No Data Anesthesia Cardiac Studies: No Data to Display
[2021-10-10] VITALS (37 sets, daily range): BP systolic 92–163; BP diastolic 48–97; PULSE 56–84; RESP 16–27; TEMP 36.1–37.3; O2SAT 92–100; BMI 35.6
--- NOTE | 2021-10-10 | XR_ITS ---
WS: [id number] XR lumbar spine 2-3V* 05979 REASON FOR EXAM: plif, l3/5 revision FINDINGS: Multiple images obtained during lumbar spine surgery demonstrate the addition of pedicle screws to th e L3 level with interbody fusion device at L3-L4. Prior to current surgery pedicle screws at L4-L5 wi th interbody fusion device at L4-L5. Surgical appliances are in proper position and alignment. XR/XR lumbar spine 2-3V* [id number] IMPRESSION: Postoperative lumbar spine without abnormality.
--- NOTE | 2021-10-10 | SCC_ITS ---
Procedure done: 1. L3/4 Interbody fusion with posterolateral fusion 2. Instrumentation L3-5 3. Posterolateral fusion L3-5 4. Cage at L3-5 5. Laminectomy L3 for puposes of decompressing nerve 6. use of autograft from same incision 7. allograft 8. Bone marrow aspirate from right iliac crest 9. Use of computer navigation stereotactic for spine 1 second of fluoroscopic guidance, for a cumulative dose of 76.3 mGy, was provided to Dr. Burt by the radiology department. C-arm images of the lumbar spine were saved for the patient's permanent record. [facility]
--- NOTE | 2021-10-10 06:33 | P.ANESUD_ITS ---
Pre-Anesthetic Update Pre-Anesthetic Assessment: Date of Surgery/Procedure: 10/10/21 Preop Ann gnosis: Lumbar stenosis with neurogenic claudication Proposed Procedure: Operation Date: 10/10/21 07:00 Proposed Procedures p Posterior Lumbar Interbody Fusion L3/5 w/revision L4/5 [id number]/M48.062(Not Applicable) - Wilner Huang, DO Any changes to Pre-Anesthetic Assessment?: No Last Intake: Intake Last Liquid Date 10/09/21 Last Liquid Time 23:30 Last Solid Date 10/09/21 Last Solid Time 22:00 Vitals: Temperature 98.0 F 10/10/21 06:14 Temperature Source Temporal Artery S can 10/10/21 06:14 Pulse Rate 64 10/10/21 06:14 Pulse Rhythm 10/10/21 06:14 Pulse Strength 3+ Normal 10/10/21 06:14 Respiratory Rate 18 10/10/21 06:14 Blood Pressure 129/62 10/10/21 06:14 Blood Pressure Sofia n 84 10/10/21 06:14 Pulse Oximetry 98 10/10/21 06:14 Oxygen Delivery Me thod 10/10/21 06:14 Exam: Pre-Anes Outpt Exam: alert, oriented x 3, clear to auscultation bilaterally and regular rate & rhythm Cardiac Studies: No Data to Display
[2021-10-10] MEDS: sodium chloride 0.9% 1,000 ML 30 ML IV ×2 (06:38→12:41)
[2021-10-10 06:47] LABS: Glucose Point of Care 104 mg/dL (70-110)
[2021-10-10 06:48] LABS: Basophils % 0.9 %; Eosinophils % 0.6 %; Hematocrit 34.8 % (37.0-47.0); Lymphocytes # 0.5 10^3/uL (0.8-4.8); Lymphocytes % 13.4 %; Mean Corpuscular HGB Conc 31.6 g/dL (30.0-36.0); Mean Corpuscular Hemoglobin 27.4 pg (28.0-34.0); Mean Corpuscular Volume 86.6 fl (81-99); Mean Platelet Volume 11.8 fL (7.4-10.4); Monocytes # 0.3 10^3/uL (0.2-0.9); Monocytes % 7.6 %; Neutrophils # 2.66 10^3/uL (1.8-7.7); Neutrophils % 77.5 %; Nucleated Red Blood Cells % 0 %; Platelet Count 145 10^3/cmm (130-400); Red Blood Count 4.02 10^6/uL (4.1-5.3); Red Cell Distribution Width 21.4 % (12.1-15.1); White Blood Count 3.4 10^3/uL (4.0-10.0)
--- NOTE | 2021-10-10 06:55 | W.PM.OPSUD ---
Surgery/Procedure H&P Update DATE OF PROCEDURE: October 10, 2021 DATE H&P PERFORMED: 10/02/21 H&P UPDATE INFORMATION: I have reviewed H&P completed within last 30 days, I have examined patient prior to procedure and No changes to prior documentation PREOP DIAGNOSIS: Lumbar stenosis with neurogenic claudication PLANNED PROCEDURE: Operation Date: 10/10/21 07:00 Proposed Procedures p Posterior Lumbar Interbody Fusion L3/5 w/revision L4/5 [id number]/M48.062(Not Applicable) - Wilner Huang DO
[2021-10-10 07:06] LABS: Anion Gap 14.8 (5-19); Blood Urea Nitrogen 9 mg/dL (6-20); Carbon Dioxide 25 mmol/L (22-29); Chloride 107 mmol/L (98-107); Creatinine Clr Calc Pharmacy 131.3352; Glomerular Filtration Rate 128.1 mL/min (90-130); Glucose 108 mg/dL (65-115); Osmolality Calculated 295 mOsm/kg (285-295); Potassium 3.8 mmol/L (3.5-5.1); Sodium 143 mmol/L (136-145)
[2021-10-10] MEDS: heparin, porcine 1,000 unit/mL INJ 10 mL 10000 UNIT IRRIGATION (08:12)
[2021-10-10] MEDS: vancomycin 1,000 MG SDV 1000 MG XX ×2 (08:13→10:46)
[2021-10-10] MEDS: fentaNYL 50 mcg/mL INJ 2mL IVP ×2 (11:37→11:48)
[2021-10-10] MEDS: HYDROmorphone 1 mg/mL INJ 1 mL 0.5 MG IVP ×4 (11:53→13:00)
--- NOTE | 2021-10-10 12:15 | PM.OP ---
Operative Report Date of procedure: October 10, 2021 Pre-op diagnosis: Preop Diagnosis Lumbar stenosis with neurogenic claudication Post-op diagnosis: same Procedure done: 1. L3/4 Interbody fusion with posterolateral fusion 2. Instrumentation L3-5 3. Posterolateral fusion L3-5 4. Cage at L3-5 5. Laminectomy L3 for puposes of decompressing nerve 6. use of autograft from same incision 7. allograft 8. Bone marrow aspirate from right iliac crest 9. Use of computer navigation stereotactic for spine Surgeon: Wilner Huang Estimated blood loss (mL): 500 Procedure: 1. L3/4 Interbody fusion with posterolateral fusion 2. Instrumentation L3-5 3. Posterolateral fusion L3-5 4. Cage at L3-5 5. Laminectomy L3 for puposes of decompressing nerve 6. use of autograft from same incision 7. allograft 8. Bone marrow aspirate from right iliac crest 9. Use of computer navigation stereotactic for spine Patient is brought to the operative suite. After undergoing anesthesia, the patient had neuro monitoring attached. Patient was then placed in the prone position on the Dominic table. All areas of impingement were well-padded. Patient was then prepped and draped in the normal sterile fashion. Skin incision was then made over the L L3-L5 levels Subperiosteal dissection was made out to the transverse processes of L3, L4 and L 5. Once the exposure was complete attention was then brought to identifying the previous screws were placed. The screws were placed at L4 and L5 respectively. The end caps of each screw were identified and removed. The rods were removed. 30 screws and it was removed. Pedicle feeler was then used to fill the pedicles. and these were 6 5 screws were removed. 7 5 screws were placed at L5 bilaterally and L4 bilaterally. Next attention was brought to aspirating the bone marrow. The [employer] bone marrow aspirate kit was used to aspirate bone marrow aspirate. This was done by using the sharp probe to open up the bone. Aspiration was performed and then the blunt probe was then used to dissect down to through the bone tunnel. An aspirating well drawn back a millimeter approximately 20 cc of bone marrow aspirate was used. Admixed with the allograft and autograft bone that will be used. Is brought to placing the fiducial for computer navigation. 2 pins were placed in the right iliac crest. These pins were later removed. Once the pins were placed the fiducial was attached. The C-arm was brought in and spun around the patient. The information from the C-arm was then loaded in the computer in order to facilitate placing pedicle screws under computer navigation. The technique for placing the pedicle screws was to use a drill followed by the gearshift probe linked to computer navigation Followed by the ball probe to feel the superior inferior medial lateral bowen of the pedicles. Then placement of the screws with computer navigation. Was done at each pedicle. Screws were placed at L3 bilaterally. . Next attention was brought to performing the laminectomy ofL3. This was done using the high-speed bur Kerrisons and curettes. Once the lamina was removed and then attention was brought to performing a partial facetectomy on the contralateral side. This was done again using the high-speed bur curettes and Kerrisons. The ligamentum flavum was taken down bilaterally from L 3 to L 4. Attention was then brought to the facet on the ipsilateral side. The facet was taken down. The L 4 nerve was decompressed as it passed around the L 4 pedicle. The laminectomy was done for purposes of decompressing the nerve as well as placement of the cage. The L 3 nerve was identified as it traversed through the L 3/4 foramen. The thecal sac was identified and retracted. The L 3/4 disc base was identified. Using a knife the disc base was opened. And then sequential jaimie were placed. The first shaver was a 6 and the last shaver was a 7. Using a pituitary and down going curette the endplates were scraped and disc material was removed from the space. Once adequate decompression of the disc base was felt to be had. Osteoamp sponge was packed into the anterior aspect of the disc base. Then a size 7 cage from [employer] was placed after packing osteoamp into the cage. While placing the cage the thecal sac and L 4 nerve was protected. C arm was used to ensure that the cages placed in the appropriate position. Attention was then brought to attaching the rods to the screws placed in the L3 bilaterally, L4 bilaterally and L5 bilaterally. Caps were torqued into position. Locking the construct in place. Wound was copiously irrigated and then attention was brought to decorticating the facets and transverse processes laterally. Bone that was taken down from the lamina was used along with osteoamp fibers and sponges were packed into the lateral gutters along the facet joints. This was done bilaterally. Wound was then closed in a layered fashion starting with the thoracolumbar fascia. 0-vicryl was used the sub cutaneous tissue was closed with 2-0 vicryl and skin with 4-0 monocryl. Glue was then used to seal the skin and a steril dressing was applied. Patient was then placed in the supine position. The endotracheal tube was removed and patient was transferred to the PACU in stable condition.
--- NOTE | 2021-10-10 12:45 | SUR.PHASEI ---
1124 PT TO PACU 5 AWAKES TO VOICE, PT WITH GOOD RESP EFFORT, DRESSING TO MID BACK D/I WITH DRAIN TO HEMAVAC COMPRESSED WITH 60ML RED DRAINAGE NOTED, PT MONITOR SR WITH NO ECTOPY SATS 100% ON 8L MASK, PT MOVES BILAT FEET TO COMMAND MUNOZ TO DD WITH YELLOW CLEAR URINE TO TUBING AND BAG, STATLOCK TO RT INNER THIGH, BILAT SCDS ON. ID BRACELET TO LT WRIST, PT ID'D WITH 2 IDENTIFERS IV LT FA #20 IV RT FOREARM #20 WITH NS 150ML UP AT KVO RATE. 1140 PT ROLLED AND DRESSING TO BACK D/I PT HAS STRONG BILAT DORSAL FLEXATION AND EXTENSION, PT AWAKE ALERT VERBALIZED PAIN OF 10 TO BACK SEE PAIN MED GIVEN 1211 PT REMAINS AWAKE ALERT TEARFUL AND SHAKING OFF AND ON, PT DENIES HX OF SIEZURES EVEN WITH ABOVE ALLERGIE NOTED. SEE PAIN MEDS GIVEN WARM BLANKETS X 5 TO PT SINCE ADMIT 1240 WARM BLANKETS X 4 TO PT PT MOVED TO FLOOR BED FOR COMFORT, HOB AT 20 DEGREES, MONITOR SB WITH NO ECTOPY VSS. DRESSING TO BACK D/I DRAIN COMPRESSED WITH SMALL AMT RED DRAINAGE.
--- NOTE | 2021-10-10 13:10 | SUR.PHASEI ---
1300 PT CRYING AGAIN, RATES PAIN AT 10 DRESSING D/I DRAIN COMPRESSED WITH GOOD SUCTION, NO HEMATOMA OR SWELLING NOTED, VSS MONITOR SB WITH NO ECTOPY, SEE PAIN MED GIVEN.
--- NOTE | 2021-10-10 13:11 | SUR.PHASEI ---
LATE ENTRY 1240 PT MOTHER UPDATED AND UP TO PT FLOOR ROOM
--- NOTE | 2021-10-10 13:43 | ANE.PACU2 ---
Inpatient post-anesthesia follow up: Airway intact: Yes Vital signs: Temperature 97 F Pulse Rate 60 Respiratory Rate 18 Blood Pressure 117/79 Pulse Oximetry 100 Oxygen Delivery Me thod Room Air Oxygen Flow Rate 8 Fraction of Inspir ed Oxygen Hydration adequate: Yes Nausea and vomiting: No Pain level: 1 Mental status: Baseline
[2021-10-10] MEDS: morphine 4 mg/mL SDV 1 mL 2 MG IVP ×3 (14:27→22:30)
[2021-10-10] MEDS: lactated ringers 1,000 ML 90 ML IV (14:28)
[2021-10-10] MEDS: oxyCODONE-APAP 10-325 mg Tablet 0.5 TAB PO (15:44)
[2021-10-10] MEDS: olopatadine 0.1% Op Soln 5 mL Btl 1 DROP EYE-BOTH (16:48)
[2021-10-10] MEDS: diclofenac 1% Topical Gel 100 gm 8 APPLIC TOPICAL ×2 (16:49→22:23)
[2021-10-10] MEDS: docusate sodium 100 mg Capsule PO (17:02)
[2021-10-10 17:36] LABS: Glucose Point of Care 136 mg/dL (70-110)
[2021-10-10 20:58] LABS: Glucose Point of Care 279 mg/dL (70-110)
[2021-10-10] MEDS: montelukast sodium 10 mg Tablet PO (22:24)
[2021-10-10] MEDS: pramipexole 0.25 mg Tablet 0.125 MG PO (22:24)
[2021-10-10] MEDS: pantoprazole DR 40 mg Tablet PO (22:25)
[2021-10-10] MEDS: ALPRAZolam 0.5 mg Tablet PO (22:27)
[2021-10-10] MEDS: hydroxychloroquine 200 mg Tablet PO (22:31)
[2021-10-11] VITALS (8 sets, daily range): BP systolic 94–114; BP diastolic 56–69; PULSE 68–72; RESP 16–18; TEMP 36.8–36.9; O2SAT 92–98
[2021-10-11] MEDS: sodium chloride 0.9% 500 ML 999 ML IV (00:09)
[2021-10-11] MEDS: oxyCODONE-APAP 10-325 mg Tablet 0.5 TAB PO ×2 (00:59→08:24)
[2021-10-11] MEDS: lactated ringers 1,000 ML 90 ML IV (01:04)
[2021-10-11] MEDS: morphine 4 mg/mL SDV 1 mL 2 MG IVP ×2 (04:05→06:11)
[2021-10-11] MEDS: enoxaparin 40 mg/0.4 mL Syringe SUBCUT (06:09)
[2021-10-11] MEDS: hydroxychloroquine 200 mg Tablet PO (06:10)
[2021-10-11] MEDS: pantoprazole DR 40 mg Tablet PO (06:10)
[2021-10-11] MEDS: buPROPion XL (24 HR) 300 mg Tablet PO (06:10)
[2021-10-11 06:26] LABS: Glucose Point of Care 101 mg/dL (70-110)
--- NOTE | 2021-10-11 07:43 | PM.DCS ---
Discharge Providers Date of Admission: 10/10/21 08:08 Date of Discharge: October 11, 2021 Attending Provider at Admission: Wilner Huang DO Attending Provider at Discharge: Wilner Huang DO Primary Care Provider: Charli Jennings Reason for Visit Reason for Visit: PLIF L3/5 REVISION L4/5 [id number] Hospital Course Hospital Course Uneventful Physical Exam Narrative: Patient improvement of her leg symptoms. 5 5 strength bilateral lower extremities. Resting comfortably in bed. Urinary Catheter Management: Latex Free: Cath Placed During This Visit: yes Reason for Continuing Indwelling Catheter: Perioperative Use in Selected Surgeries Urinary Catheter Date of Insertion: 10/10/21 Urinary Catheter Time of Insertion: 07:20 Discharge Data Studies Completed and Pending Pending at discharge Category Date Time Status C-arm Fluoroscopy 98102 Routine Exams 10/10/21 05:38 Taken XR lumbar spine 2-3V* [id number] Routine Exams 10/10/21 Taken Retype for Patiets ABO/Rh Routine Lab 10/10/21 09:30 Ordered Laboratory Results WBC 3.4 10^3/uL (4.0-10.0) L 10/10/21 06:28 RBC 4.02 10^6/uL (4.1-5.3) L 10/10/21 06:28 Hgb 11.0 g/dL (11.5-15.3) L 10/10/21 06:28 Hct 34.8 % (37.0-47.0) L 10/10/21 06:28 MCV 86.6 fl (81-99) 10/10/21 06:28 MCH 27.4 pg (28.0-34.0) L 10/10/21 06:28 MCHC 31.6 g/dL (30.0-36.0) 10/10/21 06:28 RDW 21.4 % (12.1-15.1) H 10/10/21 06:28 Plt Count 145 10^3/cmm (130-400) 10/10/21 06:28 MPV 11.8 fL (7.4-10.4) H 10/10/21 06:28 Neut % (Auto) 77.5 % 10/10/21 06:28 Lymph % (Auto) 13.4 % 10/10/21 06:28 [place] % (Auto) 7.6 % 10/10/21 06:28 Eos % (Auto) 0.6 % 10/10/21 06:28 Baso % (Auto) 0.9 % 10/10/21 06:28 Neut # (Auto) 2.66 10^3/uL (1.8-7.7) 10/10/21 06:28 Lymph # (Auto) 0.5 10^3/uL (0.8-4.8) L 10/10/21 06:28 [place] # (Auto) 0.3 10^3/uL (0.2-0.9) 10/10/21 06:28 Eos # (Auto) 0.0 10^3/uL (0.0-0.8) 10/10/21 06: Baso # (Auto) 0.0 10^3/uL (0.0-0.1) 10/10/21 06: Nucleated RBC % (auto) 0 % 10/10/21 06: Nucleated RBCs # 0.0 /100WBC 10/10/21 06:28 Sodium 143 mmol/L (136-145) 10/10/21 06:28 Potassium 3.8 mmol/L (3.5-5.1) 10/10/21 06:28 Chloride 107 mmol/L (98-107) 10/10/21 06:28 Carbon Dioxide 25 mmol/L (22-29) 10/10/21 06:28 Anion Gap 14.8 (5-19) 10/10/21 06:28 BUN 9 mg/dL (6-20) 10/10/21 06:28 Creatinine 0.5 mg/dL (0.5-0.9) 10/10/21 06:28 GFR Calculation 128.1 mL/min (90-130) 10/10/21 06:28 Glucose 108 mg/dL (65-115) 10/10/21 06:28 POC Glucose 101 mg/dL (70-110) 10/11/21 05:58 Calculated Osmolality 295 mOsm/kg (285-295) 10/10/21 06:28 Calcium 9.0 mg/dL (8.5-10.5) 10/10/21 06:28 Blood Type A Positive 10/10/21 06:28 Rho(D) Type Positive 10/10/21 06:28 Antibody Screen Negative 10/10/21 06:28 Vitals Last Vital Signs Temp 98.2 F 10/11/21 06:00 Pulse 68 10/11/21 06:00 Resp 18 10/11/21 06:11 BP 114/69 10/11/21 06:00 Pulse Ox 98 10/11/21 06:00 Discharge Plan Discharge Patient Disposition: Home Condition: Stable Prescriptions: New oxycodone-acetaminophen 10-325 mg tablet 1 - 2 tab PO Q4H PRN (Reason: pain) 7 Days Qty: 40 0RF Continued hydroxychloroquine 200 mg tablet 200 mg PO BID@07,2200 Qty: 60 3RF valacyclovir 1 tab PO DAILY 0RF cholecalciferol (vitamin D3) 50 mcg (2,000 unit) capsule 50 mcg PO DAILY 0RF magnesium 100 mg tablet 100 mg PO DAILY 0RF B Complex Plus Vitamin C 51-83-21-5-300 mg capsule 1 cap PO DAILY 0RF Rx Instructions: give with food (meal/snack) oxycodone-acetaminophen 7.5-325 mg tablet 1 tab PO QID PRN (Reason: pain) 30 Days Qty: 120 0RF Rx Instructions: fill on or after 05/16/21 Movantik 25 mg tablet 25 mg PO DAILY@07 30 Days Qty: 30 1RF Rx Instructions: must be taken on empty stomach; no food 1 hr after or 2-3 hrs before dose docusate sodium 100 mg capsule 200 mg PO DAILY@2200 0RF epinephrine 0.15 mg/0.3 mL auto-injector 0.15 mg IM Q30M PRN (Reason: Allergy Symptoms) 0RF Rx Instructions: do not exceed 12 doses per 24 hrs montelukast 10 mg tablet 10 mg PO DAILY@2200 0RF promethazine 25 mg tablet 25 mg PO BID PRN (Reason: Nausea) 0RF diclofenac sodium 1 % gel 4 g topical QID 30 Days Qty: 300 1RF Rx Instructions: apply to single knee, ankle, foot; for foot includes sole/toes/top of foot levothyroxine 150 mcg tablet 150 mcg PO DAILY Qty: 90 3RF Rx Instructions: Take one tablet by mouth daily. Trulicity 0.75 mg/0.5 mL pen injector 0.5 mg SUBCUT Q7D Qty: 2 3RF Rx Instructions: (ON SATURDAYS) pantoprazole 40 mg tablet,delayed release (DR/EC) See Rx Instructions .ROUTE .COMPLEX Qty: 60 0RF Dose Instruction: TAKE ONE TABLET BY MOUTH TWICE DAILY AT 7 IN THE MORNING AND 10 IN THE EVENING Rx Instructions: TAKE ONE TABLET BY MOUTH TWICE DAILY AT 7 IN THE MORNING AND 10 IN THE EVENING Benlysta 200 mg/mL syringe 200 mg SUBCUT .Q7days Qty: 4 3RF albuterol sulfate 90 mcg/actuation Hfa Aerosol Inhaler 2 puff INHALATION Q6H PRN (Reason: Shortness Of Breath) 0RF bupropion HCl 300 mg tablet extended release 24 hr 300 mg PO DAILY@07 0RF methocarbamol 750 mg tablet 750 mg PO TID PRN (Reason: Muscle Pain) 0RF pramipexole 0.125 mg tablet 0.125 mg PO BEDTIME 0RF Rx Instructions: 1-2 tablets allopurinol 300 mg tablet 300 mg PO DAILY 0RF prednisone 10 mg tablet See Rx Instructions PO DAILY PRN (Reason: Pain) 0RF Rx Instructions: take 1 tab daily for 5-7 days prn joint pain flare alprazolam 0.5 mg tablet 0.25 - 0.5 mg PO QPM PRN (Reason: Anxiety) 0RF Xyzal 5 mg Tablet 5 mg PO DAILY 0RF Discharge Orders: Discharge Order (Routine); Ordered 10/11/21 Ordered By: Wilner Huang Referrals: [facility] [Outside] Discharge Diet: Advance as tolerated Discharge Activity: Limit activity as instructed Patient Instructions: Opioid Safety Activity Restrictions/Additional Instructions: Thank you for [facility] for your care! The following is a list of instructions, from your provider, to follow upon your discharge to ensure you have the optimal recovery from your recent injury orsurgery. Follow-up care is a guzman part of your treatment and safety. Be sure to make and go to all appointments, and call your doctor if you are having problems. If you do not already have a follow-up appointment made, call Dr. Huang office in the next 1-3 days to make follow up appointment for 1 weeks at [phone]. It is also a good idea to know your test results and keep a list of the medicines you take. Medications will be prescribed for you at your provider's discretion. These medications are to be used as instructed; if they are taken more often that prescribed they will not be refilled early and in most cases will not be refilled at all. > When a refill is needed,you should contact jemal ballard 2-3 business days before your prescription runs out. Medications will NOT be refilled by director of campus recreation providers after hours! > Many pain medications contain Tylenol (Acetaminophen). Do not consume more than 4,000 mg of Tylenol per day in total with any combination ofmedications. > Pain medications can cause constipation. Please use an over the counter stool softener as directed, while taking pain medications. Consulty our local pharmacist with questions or recommendations on stool softeners. If constipation persists, contact our office or your primary care provider. > While under our care,you are not to receive pain medications or other controlled substances from any other provider unless our office is notified and approves. Any attempts to do so will result in refusal to prescribe any further pain medications and possible dismissal from our practice. ? keep dressing on at all times. We will change dressing in 1 week. ? Showering is permitted, however we ask that you do not take a bath, sit in a whirlpool / Jacuzzi, or go swimming for 1 month. For only the first 2 days after surgery, lt wilt be necessary for you to cover your wound/dressing with plastic and tape to keep it dry. ? Walking is essential for the healing process after surgery. We would like you to slowly advance your walking. This should be done on relatively flat clear ground (inside or out) or can be done on a treadmill. Remember this goal does not have to happen all at once, slowly increase your distance and duration. This can be broken into more more than one walk per day as tolerated. Patients who walk as directed after surgery rarely require Physical Therapy. In the unlikely event this issue arises your provider will direct hospital staff to make the appropriate arrangements. ? No lifting over 5 pounds {a gallon of milk) or bending/twisting until further notice. Each of these activities places an unnecessary amount of stress onto the body and can impede the delicate healing process. > Instead of bending at the waist, keep your back straight and bend at the knees. > Instead of twisting your torso, keep your back straight and turn your entire body with your feet. ? You may sleep in any position which makes you comfortable. Many patients find comfort sleeping in a reclining chair. It is not abnormal to have difficulty sleeping for the first several weeks following your surgery. We recommend trying Benadry! or Tylenol PM as directed to help with your sleeping difficulties. Both medications are over the counter and available withoutprescription. ? NO SMOKING!!! Smoking dramatically increases the probability of developing postoperative wound infections. ? Common complaints after lumbar and/or thoracic spine surgery include, but are not limited to: numbness and/or tingling in the legs, pain around the incision and surrounding tissues, muscle spasms, or stiffness of the middle to low back. Contact our office if these symptoms persist or if an acute change occurs. ? No driving for the first 3-5days, and not while taking narcotics until seen at your follow-up appointment and cleared. There are no restrictions for riding on short trips, however if you take a longer trip, arrangements should be made to make regular stops to get out of the vehicle and stretch . ? Swelling is an unfortunate event that will take place with any surgery and is the primary source of your postoperative discomfort. While walking and regular approved activities helps control inflammation, there are additional steps you can take to minimizeswelling. > Place ice over the surgical site and surrounding tissue for twenty minutes, followed by applying a low/medium heat (heating pad) for an additional twenty minutes every 1-2 hours as needed for painrelief. > You may use of over the counter anti-inflammatory medications (Ibuprofen, Motrin, Aleve, Advil, etc) as directed on the package label. These types of medicines wm significantly reduce the amount of discomfort you experience after surgery from swelling. It should be noted that if you have and allergy to any of these medications, or a history of ulcers or kidney disease you should consult you primary care provider prior to starting these medications. Discharge Attestations Time Spent in Discharge Care*: less than 30 min Quality Metrics Clinical Quality Measures [ No reported AMI, CVA or VTE this stay] Coding Level of Care Code Acute [facility] DC note
[2021-10-11] MEDS: cholecalciferol (vitamin D3) 1,000 unit Tablet 2000 UNIT PO (08:23)
[2021-10-11] MEDS: magnesium oxide 400 mg tablet 100 MG PO (08:23)
[2021-10-11] MEDS: docusate sodium 100 mg Capsule PO (08:24)
[2021-10-11] MEDS: levothyroxine 150 mcg Tablet PO (08:25)
[2021-10-11] MEDS: diclofenac 1% Topical Gel 100 gm 8 APPLIC TOPICAL (10:00)
[2021-10-11] MEDS: olopatadine 0.1% Op Soln 5 mL Btl 1 DROP EYE-BOTH (10:01)
[2021-10-11] MEDS: HYDROcodone-acetaminophen 5-325 mg Tablet PO (11:06)
== END 2021-10-11 11:15 | disposition home health service (06) | DRG 455 ==
LOC: MEDSURG 10:44
PROVIDERS: Admitting Provider Orthopaedic Surgery; PCP Family Medicine; Visit Provider Orthopaedic Surgery
PROC: 0SG10AJ Fusion of 2 or more Lumbar Vertebral Joints with Interbody Fusion Device, Posterior Approach, Anterior Column, Open Approach (ICD-10-PCS; CPT 22612; principal; 2021-10-10 07:00)
DX: M48.062 Spinal stenosis, lumbar region with neurogenic claudication (principal); R29.6 Repeated falls; Z88.2 Allergy status to sulfonamides; Z79.51 Long term (current) use of inhaled steroids; Z79.891 Long term (current) use of opiate analgesic; J45.909 Unspecified asthma, uncomplicated; G89.29 Other chronic pain; F32.A Depression, unspecified; E11.9 Type 2 diabetes mellitus without complications; M79.7 Fibromyalgia; K21.9 Gastro-esophageal reflux disease without esophagitis; M10.9 Gout, unspecified; M32.9 Systemic lupus erythematosus, unspecified; F43.10 Post-traumatic stress disorder, unspecified; Z98.1 Arthrodesis status; Z79.52 Long term (current) use of systemic steroids; Z79.899 Other long term (current) drug therapy
CPT/HCPCS: 36415; 36416; 51702; 72100; 76000; 80048; 82962; 85025; 86850; 86900; 96372; 97116; 97162; C1713; C9359; J0330; J1100; J1170; J1200; J1644; J1650; J2250; J2270; J2405; J2704; J2710; J3010; J3370; J3490; J7030; J7040

== ENCOUNTER → 2021-10-18 10:54 | Outpatient (BNVA) | payer MEDICARE, MEDICAID, SELFPAY | PROVIDERS: PCP Family Medicine; Visit Provider Physician Assistant | DX: Z47.89 Encounter for other orthopedic aftercare (principal); Z98.890 Other specified postprocedural states; Z98.1 Arthrodesis status | CPT/HCPCS: 72100; 99024 ==

== ENCOUNTER 2021-10-20 09:37 | Emergency (ER) | payer MEDICARE, MEDICAID, SELFPAY ==
[2021-10-20 09:50] VITALS: BP 108/73; PULSE 79; RESP 18; TEMP 37.3; O2SAT 97; BMI 35.6
--- NOTE | 2021-10-20 10:21 | W.ED.GENADLT ---
HPI - General Adult General: Chief complaint: General Medical Stated complaint: had back surg. is having back pain/fluid leaking Time Seen by Provider: 10/20/21 09:42 Source: patient Mode of arrival: ambulatory Limitations: no limitations History of Present Illness: 56-year-old female presents emergency room after having surgery earlier this week she fell shortly after surgery was seen back in the pain clinic x-rays were done and were unremarkable there is no abnormalities to the hardware. Patient was discharged home under continued regimen routine postop recommendations. She is complaining some drainage and persistent back pain now some the numbness tingling from prior to surgery has begun to recur. She has not had any urinary retention or fecal incontinence. No fever sweats or chills. Onset (ago): day(s) Location: back Severity: moderate Quality: sharp Pain Consistency: constant Relieving factors: other (Supine) Exacerbating factors: movement and other (Walking, sitting upright) Associated symptoms: Deny chest pain, confusion, cough, diaphoresis, decreased appetite, dyspnea, fevers/chills, headache(s), malaise, nausea, rash, palpitations, seizures, short of breath, syncope, vomiting or weakness Treatments prior to arrival: none Review of Systems Const: Denies: malaise or diaphoresis ENMT: Denies: throat pain, ear or mastoid pain, nasal discharge or nasal congestion Card: Denies: chest pain, palpitations or syncope Resp: Denies: dyspnea GI: Denies: nausea or vomiting : Denies: flank pain, difficulty voiding, dysuria, urinary frequency or urinary urgency Skin/Breast: Denies: rash Neuro: Denies: headache(s) or confusion PFS ED PFSH: Medical History Anemia Anxiety Asthma Chronic back pain Chronic pain Chronic shoulder pain Depression Diabetes mellitus Encounter for long-term opiate analgesic use Fibromyalgia GERD (gastroesophageal reflux disease) Gout High risk medication use Hypothyroidism Immunization counseling Immunization counseling Inflammatory arthritis Joint pain Laceration of right lower leg Lupus (systemic lupus erythematosus) Nephrolithiasis Osteoarthritis Psychiatric care PTSD (post-traumatic stress disorder) SLE (systemic lupus erythematosus related syndrome) Spinal stenosis Stricture of esophagus Urolithiasis History of recurrent stones. No obstructing stones identified during admission 07/14/2020 Surgical History Gastric bypass status for obesity History of carpal tunnel surgery History of cholecystectomy History of fusion of cervical spine History of lumbar spinal fusion History of partial knee replacement History of shoulder surgery History of spinal fusion Cervical and lumbar History of tonsillectomy History of tubal ligation Status post fusion of wrist Family History Sister Cancer Mother Diabetes Heart disease Grandfather Diabetes Grandmother Diabetes Father Heart disease Other CAD (coronary artery disease) Clotting disorder Hypertension Stroke Denies family history of Hyperlipidemia Chronic kidney disease (CKD) Lung disease Social History Smoking and tobacco status: never smoked Second hand smoke exposure: No Alcohol intake: never Adopted: No Marital status: Single Number of children: 2 service: No History of recent travel: No Physical Exam Const: COMMON NORMALS: no acute distress GENERAL APPEARANCE: cooperative and comfortable ORIENTATION/CONSCIOUSNESS: Yes awake, Yes oriented to person, Yes oriented to place and Yes oriented to time HENMT: COMMON NORMALS: normocephalic, atraumatic and hearing grossly normal bilaterally HEAD & SCALP: normocephalic and atraumatic Neck/C-Spine: COMMON NORMALS: no JVD Lymph: LYMPHATIC: no lymphadenopathy noted and no lymphedema noted Resp: COMMON NORMALS: normal respiratory effort, No retractions, No use of accessory muscles and clear to auscultation bilaterally AUSCULTATION: clear to auscultation bilaterally Cardio: COMMON NORMALS: no JVD, regular rate, regular rhythm and No murmurs present (Cardio) RATE: regular rate RHYTHM: regular rhythm GI: COMMON NORMALS: Soft to palpation and No hepatosplenomegaly present AUSCULTATION: Yes normoactive bowel sounds PALPATION: Yes Soft to palpation, No Tenderness to palpation present (GI), No Guarding due to palpation present (GI) and Yes No hepatosplenomegaly present Extremity: COMMON NORMALS: normal to inspection, capillary refill normal, no clubbing, cyanosis or edema, no calf tenderness and no pedal edema Neuro: SENSORIUM/ORIENTATION: Yes oriented to person, Yes oriented to place and Yes oriented to time Skin: COMMON NORMALS: no rashes or lesions noted GENERAL SKIN EXAM: no rashes or lesions noted Course Vital Signs: Vital signs: Vital Signs Temperature 99.2 F 10/20/21 09:50 Pulse Rate 79 10/20/21 09:50 Respiratory Rate 18 10/20/21 11:21 Blood Pressure 108/73 10/20/21 09:50 Pulse Oximetry 98 10/20/21 11:21 MDM - General Adult Medical Decision Making Subdural fluid medication. Previous notes and imaging reviewed. Discharge patient home follow-up with Dr. Huang as previously scheduled return if has problems. Medical Records I reviewed the patient's medical records. Lab Data : 10/20/21 10:45 10/20/21 10:45 Laboratory Results WBC 5.1 10^3/uL (4.0-10.0) 10/20/21 10:45 RBC 3.41 10^6/uL (4.1-5.3) L 10/20/21 10:45 Hgb 9.9 g/dL (11.5-15.3) L 10/20/21 10:45 Hct 32.2 % (37.0-47.0) L 10/20/21 10:45 MCV 94.4 fl (81-99) 10/20/21 10:45 MCH 29.0 pg (28.0-34.0) 10/20/21 10:45 MCHC 30.7 g/dL (30.0-36.0) 10/20/21 10:45 RDW 22.3 % (12.1-15.1) H 10/20/21 10:45 Plt Count 268 10^3/cmm (130-400) 10/20/21 10:45 MPV 10.5 fL (7.4-10.4) H 10/20/21 10:45 Neut % (Auto) 68.6 % 10/20/21 10:45 Lymph % (Auto) 17.8 % 10/20/21 10:45 [place] % (Auto) 5.9 % 10/20/21 10:45 Eos % (Auto) 6.1 % 10/20/21 10:45 Baso % (Auto) 1.0 % 10/20/21 10:45 Neut # (Auto) 3.52 10^3/uL (1.8-7.7) 10/20/21 10:45 Lymph # (Auto) 0.9 10^3/uL (0.8-4.8) 10/20/21 10:45 [place] # (Auto) 0.3 10^3/uL (0.2-0.9) 10/20/21 10:45 Eos # (Auto) 0.3 10^3/uL (0.0-0.8) 10/20/21 10:45 Baso # (Auto) 0.1 10^3/uL (0.0-0.1) 10/20/21 10:45 Nucleated RBC % (auto) 0 % 10/20/21 10:45 Nucleated RBCs # 0.0 /100WBC 10/20/21 10:45 Sodium 141 mmol/L (136-145) 10/20/21 10:45 Potassium 4.0 mmol/L (3.5-5.1) 10/20/21 10:45 Chloride 105 mmol/L (98-107) 10/20/21 10:45 Carbon Dioxide 27 mmol/L (22-29) 10/20/21 10:45 Anion Gap 13.0 (5-19) 10/20/21 10:45 BUN 5 mg/dL (6-20) L 10/20/21 10:45 Creatinine 0.6 mg/dL (0.5-0.9) 10/20/21 10:45 GFR Calculation 103.8 mL/min (90-130) 10/20/21 10:45 Glucose 86 mg/dL (65-115) 10/20/21 10:45 Calculated Osmolality 289 mOsm/kg (285-295) 10/20/21 10:45 Calcium 8.4 mg/dL (8.5-10.5) L 10/20/21 10:45 Discharge Plan Discharge Patient Disposition: Home Clinical Impression: Postoperative back pain, Status post lumbar spinal fusion, Spinal stenosis, Seroma after procedure Condition: Stable Prescriptions: New prednisone 20 mg tablet 20 mg PO TID Qty: 15 0RF Rx Instructions: 1 p.o. 3 times daily x3 days, 1 p.o. twice daily x2 days, 1 p.o. daily x2 days No Action hydroxychloroquine 200 mg tablet 200 mg PO BID@ Qty: 60 3RF valacyclovir 1 tab PO DAILY 0RF cholecalciferol (vitamin D3) 50 mcg (2,000 unit) capsule 50 mcg PO DAILY 0RF magnesium 100 mg tablet 100 mg PO DAILY 0RF B Complex Plus Vitamin C 24-48-53-5-300 mg capsule 1 cap PO DAILY 0RF Rx Instructions: give with food (meal/snack) oxycodone-acetaminophen 7.5-325 mg tablet 1 tab PO QID PRN (Reason: pain) 30 Days Qty: 120 0RF Rx Instructions: fill on or after 05/16/21 Movantik 25 mg tablet 25 mg PO DAILY@07 30 Days Qty: 30 1RF Rx Instructions: must be taken on empty stomach; no food 1 hr after or 2-3 hrs before dose docusate sodium 100 mg capsule 200 mg PO DAILY@2200 0RF epinephrine 0.15 mg/0.3 mL auto-injector 0.15 mg IM Q30M PRN (Reason: Allergy Symptoms) 0RF Rx Instructions: do not exceed 12 doses per 24 hrs montelukast 10 mg tablet 10 mg PO DAILY@2200 0RF promethazine 25 mg tablet 25 mg PO BID PRN (Reason: Nausea) 0RF diclofenac sodium 1 % gel 4 g topical QID 30 Days Qty: 300 1RF Rx Instructions: apply to single knee, ankle, foot; for foot includes sole/toes/top of foot levothyroxine 150 mcg tablet 150 mcg PO DAILY Qty: 90 3RF Rx Instructions: Take one tablet by mouth daily. Trulicity 0.75 mg/0.5 mL pen injector 0.5 mg SUBCUT Q7D Qty: 2 3RF Rx Instructions: (ON SATURDAYS) pantoprazole 40 mg tablet,delayed release (DR/EC) See Rx Instructions .ROUTE .COMPLEX Qty: 60 0RF Dose Instruction: TAKE ONE TABLET BY MOUTH TWICE DAILY AT 7 IN THE MORNING AND 10 IN THE EVENING Rx Instructions: TAKE ONE TABLET BY MOUTH TWICE DAILY AT 7 IN THE MORNING AND 10 IN THE EVENING Benlysta 200 mg/mL syringe 200 mg SUBCUT .Q7days Qty: 4 3RF oxycodone-acetaminophen 10-325 mg tablet 1 - 2 tab PO Q4H PRN (Reason: pain) 7 Days Qty: 40 0RF albuterol sulfate 90 mcg/actuation Hfa Aerosol Inhaler 2 puff INHALATION Q6H PRN (Reason: Shortness Of Breath) 0RF bupropion HCl 300 mg tablet extended release 24 hr 300 mg PO DAILY@07 0RF methocarbamol 750 mg tablet 750 mg PO TID PRN (Reason: Muscle Pain) 0RF pramipexole 0.125 mg tablet 0.125 mg PO BEDTIME 0RF Rx Instructions: 1-2 tablets allopurinol 300 mg tablet 300 mg PO DAILY 0RF prednisone 10 mg tablet See Rx Instructions PO DAILY PRN (Reason: Pain) 0RF Rx Instructions: take 1 tab daily for 5-7 days prn joint pain flare alprazolam 0.5 mg tablet 0.25 - 0.5 mg PO QPM PRN (Reason: Anxiety) 0RF Xyzal 5 mg Tablet 5 mg PO DAILY 0RF Discharge Orders: Discharge ED (Routine); Ordered 10/20/21 Ordered By: Shane Parada Referrals: Charli Jennings [Primary Care Provider] - Discharge Diet: Usual diet Discharge Activity: Limit activity as instructed Patient Instructions: Opioid Safety Activity Restrictions/Additional Instructions: Continue to follow postop instructions given to you by Dr. Huang. Contact his office early next week for further follow-up instructions. Coding Level of Care Code ED Processing Operator for Haley Novoa
[2021-10-20 10:55] LABS: Basophils # 0.1 10^3/uL (0.0-0.1); Eosinophils # 0.3 10^3/uL (0.0-0.8); Eosinophils % 6.1 %; Hematocrit 32.2 % (37.0-47.0); Hemoglobin 9.9 g/dL (11.5-15.3); Lymphocytes # 0.9 10^3/uL (0.8-4.8); Lymphocytes % 17.8 %; Mean Corpuscular HGB Conc 30.7 g/dL (30.0-36.0); Mean Corpuscular Volume 94.4 fl (81-99); Mean Platelet Volume 10.5 fL (7.4-10.4); Monocytes # 0.3 10^3/uL (0.2-0.9); Monocytes % 5.9 %; Neutrophils # 3.52 10^3/uL (1.8-7.7); Neutrophils % 68.6 %; Nucleated Red Blood Cells % 0 %; Platelet Count 268 10^3/cmm (130-400); Red Blood Count 3.41 10^6/uL (4.1-5.3); Red Cell Distribution Width 22.3 % (12.1-15.1); White Blood Count 5.1 10^3/uL (4.0-10.0)
[2021-10-20 11:11] LABS: Blood Urea Nitrogen 5 mg/dL (6-20); Calcium 8.4 mg/dL (8.5-10.5); Carbon Dioxide 27 mmol/L (22-29); Chloride 105 mmol/L (98-107); Glomerular Filtration Rate 103.8 mL/min (90-130); Glucose 86 mg/dL (65-115); Osmolality Calculated 289 mOsm/kg (285-295); Sodium 141 mmol/L (136-145)
[2021-10-20 11:21] VITALS: RESP 18; O2SAT 98
[2021-10-20] MEDS: morphine 4 mg/mL SDV 1 mL IM (11:21)
[2021-10-20] MEDS: dexamethasone 10 mg/mL INJ IM (11:22)
== END 2021-10-20 12:20 | disposition home or self-care (01) ==
PROVIDERS: Emergency Provider Family Medicine; PCP Family Medicine
DX: G89.18 Other acute postprocedural pain (principal); Z98.1 Arthrodesis status; M48.061 Spinal stenosis, lumbar region without neurogenic claudication; L76.34 Postprocedural seroma of skin and subcutaneous tissue following other procedure; Y83.8 Other surgical procedures as the cause of abnormal reaction of the patient, or of later complication, without mention of misadventure at the time of the procedure
CPT/HCPCS: 80048; 85025; 96372; 99284; J1100; J2270

== ENCOUNTER → 2021-10-25 07:42 | Outpatient (BNVA) | payer MEDICARE, MEDICAID, SELFPAY | PROVIDERS: PCP Family Medicine; Visit Provider Physician Assistant | DX: Z47.89 Encounter for other orthopedic aftercare (principal); Z98.890 Other specified postprocedural states; Z98.1 Arthrodesis status | CPT/HCPCS: 72100; 99024 ==

== ENCOUNTER → 2021-10-30 08:26 | Outpatient (BNVA) | payer MEDICARE, MEDICAID, SELFPAY | PROVIDERS: PCP Family Medicine; Visit Provider Internal Medicine | DX: E11.9 Type 2 diabetes mellitus without complications (principal); E21.3 Hyperparathyroidism, unspecified; E03.9 Hypothyroidism, unspecified; N20.0 Calculus of kidney; Z79.899 Other long term (current) drug therapy | CPT/HCPCS: 99214 ==

== ENCOUNTER → 2021-11-01 13:07 | Outpatient (BNVA) | payer MEDICARE, MEDICAID, SELFPAY | PROVIDERS: PCP Family Medicine; Visit Provider Physician Assistant | DX: R30.9 Painful micturition, unspecified (principal); Z87.440 Personal history of urinary (tract) infections; Z87.442 Personal history of urinary calculi; Z47.89 Encounter for other orthopedic aftercare; Z98.890 Other specified postprocedural states; Z98.1 Arthrodesis status | CPT/HCPCS: 36415; 72100; 81003; 85025; 86140; 99024 ==

== ENCOUNTER → 2021-11-08 07:48 | Outpatient (BNVA) | payer MEDICARE, MEDICAID, SELFPAY | PROVIDERS: PCP Family Medicine; Visit Provider Physician Assistant | DX: Z47.89 Encounter for other orthopedic aftercare (principal); Z98.1 Arthrodesis status | CPT/HCPCS: 99024 ==

== ENCOUNTER 2021-11-26 11:12 | Outpatient (CLI) | payer MEDICARE, MEDICAID, SELFPAY ==
--- NOTE | 2021-11-26 11:45 | MR_ITS ---
WS: [id number] MRI CERVICAL SPINE NONCONTRAST TECHNIQUE: Sagittal T1, T2 and STIR imaging. Axial T2, gradient, and fiesta imaging. CLINICAL INFORMATION: pain COMPARISON: MRI July 18, 2020. CT September 23, 2021 FINDINGS: Straightening of the normal cervical lordosis. Prior postoperative changes ACDF C5-C6. Alignment appe ars unchanged since the prior CT. No high-grade central canal stenosis. Cord signal is normal. C2-C3: Normal. C3-C4: Mild facet arthropathy. Mild LEFT and no significant RIGHT foraminal narrowing. Spinal canal i s patent. C4-C5: Mild disc bulging with a shallow central protrusion. Slight effacement of the ventral thecal s ac. Spinal canal is patent. Mild facet arthropathy. Foramen are patent. C5-C6: Postoperative changes ACDF C5-C6. Interbody fusion graft. Mild facet arthropathy. Mild bilater al bony foraminal narrowing. Mild facet arthropathy. C6-C7: Mild LEFT and no significant RIGHT bony foraminal narrowing. Spinal canal is patent. Mild disc osteophytic ridging. C7-T1: Mild disc osteophytic ridging. Spinal canal and foramen are patent. Visualized brain stem structures: Normal. Prevertebral soft tissues: Normal. MR/MR cervical spin wo con* [id number] IMPRESSION: Some images degraded by patient motion. 1. Straightening of the normal cervical lordosis. ACDF C5-C6 with interbody fu tani appears stable. 2. Shallow central disc protrusions C4-C5 and C6-C7 without significant spinal canal narrowing. 3. Mild bony foraminal narrowing LEFT C3-C4, bilateral C5-C6, and LEFT C6-C7. 4. Overall no significant changes compared to previous.
== END 2021-11-26 11:13 | disposition home or self-care (01) ==
LOC: RAD 11:12
PROVIDERS: PCP Family Medicine; Visit Provider Orthopaedic Surgery
DX: M50.221 Other cervical disc displacement at C4-C5 level; M48.02 Spinal stenosis, cervical region
CPT/HCPCS: 72141

== ENCOUNTER → 2021-12-06 08:11 | Outpatient (BNVA) | payer MEDICARE, MEDICAID, SELFPAY | PROVIDERS: PCP Family Medicine; Visit Provider Physician Assistant | DX: Z98.1 Arthrodesis status (principal); Z47.89 Encounter for other orthopedic aftercare | CPT/HCPCS: 72100; 99024 ==

== ENCOUNTER → 2021-12-11 07:53 | Outpatient (BNVA) | payer MEDICARE, MEDICAID, SELFPAY | PROVIDERS: PCP Family Medicine; Visit Provider Physician Assistant | DX: R20.0 Anesthesia of skin (principal); R20.2 Paresthesia of skin; Z98.1 Arthrodesis status | CPT/HCPCS: 99213 ==

== ENCOUNTER → 2022-01-21 07:57 | Outpatient (BNVA) | payer MEDICARE, MEDICAID, SELFPAY | PROVIDERS: PCP Family Medicine; Referring Provider Physician Assistant; Visit Provider Specialist | DX: Z98.1 Arthrodesis status (principal); G56.02 Carpal tunnel syndrome, left upper limb | CPT/HCPCS: 95910; 95912 ==

== ENCOUNTER → 2022-01-29 08:16 | Outpatient (BNVA) | payer MEDICARE, MEDICAID, SELFPAY | PROVIDERS: PCP Family Medicine; Visit Provider Internal Medicine | DX: E11.9 Type 2 diabetes mellitus without complications (principal); E03.9 Hypothyroidism, unspecified; E21.3 Hyperparathyroidism, unspecified; N20.0 Calculus of kidney; Z79.891 Long term (current) use of opiate analgesic | CPT/HCPCS: 99214 ==

== ENCOUNTER → 2022-02-05 15:24 | Outpatient (BNVA) | payer MEDICARE, MEDICAID, SELFPAY | PROVIDERS: PCP Family Medicine; Visit Provider Physician Assistant | DX: M47.812 Spondylosis without myelopathy or radiculopathy, cervical region (principal); Z98.1 Arthrodesis status | CPT/HCPCS: 99213 ==

== ENCOUNTER → 2022-03-20 09:57 | Outpatient (BNVA) | payer MEDICARE, MEDICAID, SELFPAY | PROVIDERS: PCP Family Medicine; Visit Provider Anesthesiology Pain Medicine | DX: M48.02 Spinal stenosis, cervical region (principal); M79.601 Pain in right arm; M79.602 Pain in left arm; Z98.1 Arthrodesis status | CPT/HCPCS: 99205 ==

== ENCOUNTER 2022-04-19 07:55 | Outpatient (CLI) | payer MEDICARE, MEDICAID, SELFPAY ==
[2022-04-19 08:40] LABS: Basophils % 0.9 %; Eosinophils # 0.3 10^3/uL (0.0-0.8); Eosinophils % 6.6 %; Hematocrit 38.6 % (37.0-47.0); Hemoglobin 12.7 g/dL (11.5-15.3); Lymphocytes # 0.9 10^3/uL (0.8-4.8); Lymphocytes % 18.2 %; Mean Corpuscular HGB Conc 32.9 g/dL (30.0-36.0); Mean Corpuscular Hemoglobin 30.9 pg (28.0-34.0); Mean Corpuscular Volume 93.9 fl (81-99); Mean Platelet Volume 11.2 fL (7.4-10.4); Monocytes # 0.3 10^3/uL (0.2-0.9); Monocytes % 5.8 %; Neutrophils % 68.3 %; Nucleated Red Blood Cells % 0 %; Platelet Count 241 10^3/cmm (130-400); Red Blood Count 4.11 10^6/uL (4.1-5.3); Red Cell Distribution Width 13.4 % (12.1-15.1); White Blood Count 4.7 10^3/uL (4.0-10.0)
[2022-04-19 09:10] LABS: Alanine Aminotransferase 17 U/L (0-33); Albumin Level 4.1 g/dL (3.5-5.2); Alkaline Phosphatase 90 U/L (35-105); Anion Gap 11.7 (5-19); Aspartate Amino Transferase 20 U/L (0-32); Blood Urea Nitrogen 8 mg/dL (6-20); Calcium 9.1 mg/dL (8.5-10.5); Carbon Dioxide 27 mmol/L (22-29); Chloride 102 mmol/L (98-107); Globulin 2.5 g/dL (1.3-4.6); Glomerular Filtration Rate 103.4 mL/min (90-130); Glucose 232 mg/dL (65-115); Osmolality Calculated 290 mOsm/kg (285-295); Potassium 3.7 mmol/L (3.5-5.1); Sodium 137 mmol/L (136-145); Total Bilirubin 0.3 mg/dL (0.15-1.2); Total Protein 6.6 g/dL (6.6-8.7)
[2022-04-19 09:46] LABS: Alanine Aminotransferase 17 U/L (0-33); Albumin Level 4.1 g/dL (3.5-5.2); Alkaline Phosphatase 91 U/L (35-105); Aspartate Amino Transferase 20 U/L (0-32); Chol HDL Ratio 2.35 mg/dL (0.0-4.40); Cholesterol 167 mg/dL (0-200); Free T4 Free Thyroxine 1.52 ng/dL (0.82-1.77); Globulin 2.6 g/dL (1.3-4.6); Glomerular Filtration Rate 103.4 mL/min (90-130); HDL Cholesterol 71 mg/dL (60-100); LDL Cholesterol Calculated 59 mg/dL (50-129); LDL HDL Ratio 0.83 RATIO (0.00-3.22); Total Bilirubin 0.3 mg/dL (0.15-1.2); Total Protein 6.7 g/dL (6.6-8.7); Triglycerides 184 mg/dL (0-150)
[2022-04-19 09:50] LABS: Estmated Average Glucose 131; Hemoglobin A1C 6.2 % (4.0-6.0)
== END 2022-04-19 07:56 | disposition home or self-care (01) ==
LOC: LAB 08:00
PROVIDERS: PCP Family Medicine; Referring Provider Internal Medicine Rheumatology; Visit Provider Internal Medicine
DX: M19.90 Unspecified osteoarthritis, unspecified site (principal); M32.9 Systemic lupus erythematosus, unspecified; E03.9 Hypothyroidism, unspecified; E11.9 Type 2 diabetes mellitus without complications; Z79.891 Long term (current) use of opiate analgesic; Z79.899 Other long term (current) drug therapy
CPT/HCPCS: 36415; 80053; 80061; 80076; 82565; 83036; 84439; 84443; 85025; 86140

== ENCOUNTER 2022-05-02 07:39 | Outpatient (CLI) | payer MEDICARE, MEDICAID, SELFPAY ==
--- NOTE | 2022-05-02 07:51 | MM_ITS ---
WS: [id number] BILATERAL SCREENING DIGITAL TOMOSYNTHESIS MAMMOGRAM WITH CAD HISTORY: SCREENING COMPARISON: None available. Bilateral CC and MLO views with tomosynthesis and synthetic mammography submitted. Computer aided det ection analyzed. Breast composition: There are scattered areas of fibroglandular density. No suspicious masses, microc alcifications or architectural distortion. Benign calcifications and breast arterial calcifications i n each breast. MM/[place] [id number] IMPRESSION: BI-RADS: 2-Benign FOLLOW UP: 1 Year Follow-up
== END 2022-05-02 07:40 | disposition home or self-care (01) ==
LOC: RAD 07:40
PROVIDERS: PCP Family Medicine; Visit Provider Family Medicine
DX: Z12.31 Encounter for screening mammogram for malignant neoplasm of breast (principal)
CPT/HCPCS: 77063; 77067

== ENCOUNTER → 2022-05-23 07:51 | Outpatient (BNVA) | payer MEDICARE, MEDICAID, SELFPAY | PROVIDERS: PCP Family Medicine; Visit Provider Physician Assistant | DX: Z98.1 Arthrodesis status (principal); M47.818 Spondylosis without myelopathy or radiculopathy, sacral and sacrococcygeal region | CPT/HCPCS: 72100; 99213 ==

== ENCOUNTER → 2022-05-30 13:57 | Outpatient (BNVA) | payer MEDICARE, MEDICAID, SELFPAY | PROVIDERS: PCP Family Medicine; Visit Provider Internal Medicine | DX: E03.9 Hypothyroidism, unspecified (principal); E11.9 Type 2 diabetes mellitus without complications; E21.3 Hyperparathyroidism, unspecified; E16.2 Hypoglycemia, unspecified; Z79.891 Long term (current) use of opiate analgesic; Z79.890 Hormone replacement therapy | CPT/HCPCS: 99214 ==

== ENCOUNTER → 2022-06-18 10:22 | Outpatient (BNVA) | payer MEDICARE, MEDICAID, SELFPAY | PROVIDERS: PCP Family Medicine; Visit Provider Orthopaedic Surgery | DX: M75.101 Unspecified rotator cuff tear or rupture of right shoulder, not specified as traumatic (principal); M12.811 Other specific arthropathies, not elsewhere classified, right shoulder; M75.102 Unspecified rotator cuff tear or rupture of left shoulder, not specified as traumatic | CPT/HCPCS: 73030; 99203 ==

== ENCOUNTER 2022-06-26 07:09 | Outpatient (CLI) | payer MEDICARE, MEDICAID, SELFPAY ==
[2022-06-26 08:11] LABS: Basophils % 0.4 %; Eosinophils # 0.2 10^3/uL (0.0-0.8); Eosinophils % 2.8 %; Hematocrit 37.9 % (37.0-47.0); Lymphocytes # 1.3 10^3/uL (0.8-4.8); Lymphocytes % 24.3 %; Mean Corpuscular HGB Conc 31.7 g/dL (30.0-36.0); Mean Corpuscular Hemoglobin 30.2 pg (28.0-34.0); Mean Corpuscular Volume 95.2 fl (81-99); Monocytes # 0.3 10^3/uL (0.2-0.9); Monocytes % 5.7 %; Neutrophils % 66.6 %; Nucleated Red Blood Cells % 0 %; Platelet Count 239 10^3/cmm (130-400); Red Blood Count 3.98 10^6/uL (4.1-5.3); Red Cell Distribution Width 13.9 % (12.1-15.1); White Blood Count 5.4 10^3/uL (4.0-10.0)
[2022-06-26 08:28] LABS: Bilirubin Urine Neg (Negative); Blood Urine Neg (Negative); Glucose Urine UA Norm (Normal); Ketones Urine Negative (Negative); Leukocyte Esterase Urine 2+ (Negative); Nitrate Urine Negative (Negative); Protein Urine Neg (Negative); Urine Appearance Hazy (CLEAR); Urine Color Yellow (Yellow); Urobilinogen Urine Norm (Negative); pH Urine 5 (5-7)
[2022-06-26 08:29] LABS: Bacteria Urine 1+ /hpf; RBC Urine 0-4 /hpf (0-2)
[2022-06-26 08:38] LABS: Urine Creatinine 117 mg/dL (28-217); Urine Protein Random 9 mg/dL
[2022-06-26 08:39] LABS: Alanine Aminotransferase 12 U/L (0-33); Albumin Level 3.9 g/dL (3.5-5.2); Alkaline Phosphatase 93 U/L (35-105); Aspartate Amino Transferase 20 U/L (0-32); C Reactive Protein 5.3 mg/L (0.0-4.9); Globulin 2.5 g/dL (1.3-4.6); Glomerular Filtration Rate 86.6 mL/min (90-130); Total Bilirubin 0.2 mg/dL (0.15-1.2); Total Protein 6.4 g/dL (6.6-8.7)
[2022-06-26 08:44] LABS: Thyroid Stimulating Hormone 0.32 uIU/mL (0.27-4.20)
== END 2022-06-26 07:10 | disposition home or self-care (01) ==
PROVIDERS: PCP Family Medicine; Referring Provider Internal Medicine; Visit Provider Internal Medicine Rheumatology
DX: M32.9 Systemic lupus erythematosus, unspecified (principal); E03.9 Hypothyroidism, unspecified
CPT/HCPCS: 36415; 80076; 81001; 82565; 82570; 84156; 84439; 84443; 85025; 86140

== ENCOUNTER → 2022-07-02 08:55 | Outpatient (BNVA) | payer MEDICARE, MEDICAID, SELFPAY | PROVIDERS: PCP Family Medicine; Visit Provider Internal Medicine Rheumatology | DX: M32.9 Systemic lupus erythematosus, unspecified (principal); Z79.899 Other long term (current) drug therapy; Z71.85 Encounter for immunization safety counseling; M19.90 Unspecified osteoarthritis, unspecified site | CPT/HCPCS: 99214 ==

== ENCOUNTER 2022-07-16 14:17 | Outpatient (CLI) | payer MEDICARE, MEDICAID, SELFPAY ==
--- NOTE | 2022-07-16 15:15 | MR_ITS ---
WS: [id number] EXAMINATION: MR shoulder LT wo con* [id number] ORDER DATE: 07/16/2022 2:41 PM COMPARISON: None. HISTORY: shoulder pain CONTRAST: MRI 2020 TECHNIQUE: Axial T2 STAR, coronal proton density fat sat, sagittal T2 fat sat, sagittal proton densit y fat sat, axial proton density fat sat, coronal T2 fat sat, and coronal T1 performed. After contrast , axial T1 fat sat, coronal T1 fat sat, and sagittal T1 fat sat were performed. FINDINGS: Mild degenerative arthritis AC joint with mild downsloping acromion. Slight subacromial spurring. Imp ingement on the distal supraspinatus. Small amount of fluid and edema in the AC joint. Tiny undersurface tear distal supraspinatus. Mild tendinopathy. No tendon retraction. Normal infraspi natus. Normal teres minor. Normal subscapularis. Only tiny remnant biceps tendon within the bicipital groove consistent with interval tear. Small Subc oracoid Effusion. Intra-Articular Biceps Tendon Appears Intact. Degenerative Fraying Of The Glenoid L abrum. Biceps Labral [place] Appears Intact. MR/MR shoulder LT wo con* [id number] IMPRESSION: 1. Moderate degenerative arthritis AC joint with mild edema. Mild subacromial spurring with impingement on the distal supraspinatus. 2. Tiny undersurface tear distal supraspinatus with tendinopathy. 3. Tiny remnant biceps tendon in the bicipital groove consistent with interval tear. Intra-articular biceps tendon appears intact. Biceps tendon distally thomas ears intact. 4. No other acute findings.
== END 2022-07-16 14:18 | disposition home or self-care (01) ==
LOC: RAD 14:19
PROVIDERS: PCP Family Medicine; Visit Provider Orthopaedic Surgery
DX: N39.0 Urinary tract infection, site not specified (principal); M19.012 Primary osteoarthritis, left shoulder; M75.102 Unspecified rotator cuff tear or rupture of left shoulder, not specified as traumatic; R60.0 Localized edema
CPT/HCPCS: 73221; 87086

== ENCOUNTER 2022-07-19 18:55 | Emergency (ER) | payer MEDICARE, MEDICAID, SELFPAY ==
--- NOTE | 2022-07-19 18:58 | XRR_ITS ---
PROCEDURE INFORMATION: Exam: XR Left Shoulder Exam date and time: 07/19/2022 7:35 PM Age: 57 years old Clinical indication: Pain; Shoulder; Left; Additional info: Injury TECHNIQUE: Imaging protocol: Radiologic exam of the left shoulder. Views: 2 or more views. COMPARISON: MR shoulder LT wo con* [id number] 07/16/2022 3:11 PM FINDINGS: Bones/joints: Normal. Soft tissues: Normal. XR/XR shoulder LT min 2V* [id number] IMPRESSION: No acute findings.
[2022-07-19 19:13] VITALS: BP 124/72; PULSE 79; RESP 16; TEMP 36.8; O2SAT 97; BMI 37.5
[2022-07-19 21:40] VITALS: BP 117/74; PULSE 77; RESP 18; O2SAT 98
--- NOTE | 2022-07-19 21:43 | ECG_ITS ---
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 Measurements Intervals [place] Rate: 75 P: 127 PA: 142 QRS: -9 QRSD: 89 T: 77 QT: 408 QTc: 456 Interpretive Statements SINUS RHYTHM LOW QRS VOLTAGE IN PRECORDIAL LEADS [QRS DEFLECTION < 1.0 mV IN CHEST LEADS] NONSPECIFIC T-WAVE ABNORMALITY Compared to ECG 05/25/2020 14:06:04 T-wave abnormality now present Myocardial infarct finding no longer present Electronically Signed On 07-20-2022 21:40:23 CDT by Ana Burciaga M.D. [id number]
--- NOTE | 2022-07-19 21:45 | W.ED.EXTPRO ---
HPI - Extremity Problem General: Chief complaint: Extremity Injury, Upper Stated complaint: left should pain/injury Time Seen by Provider: 07/19/22 20:56 Source: patient Mode of arrival: ambulatory Limitations: no limitations History of Present Illness: 57-year-old female has history of left shoulder pain she states she had an MRI recently by the orthopedist and was told she may need surgery states she was lifting a heavy object yesterday has been having worsening shoulder pain since then states is a sharp pain that radiates across her chest is much worse with palpation and movement she rates her pain a 6 out of 10 denies any shortness of breath. Associated symptoms: Deny chest pain, fever(s) or rash Review of Systems Const: Denies: fever(s), chills, body aches or change in appetite Eyes: Denies: blurry vision or eye discomfort ENMT: Denies: throat pain or dental pain Card: Denies: chest pain Resp: Denies: dyspnea GI: Denies: abdominal pain, nausea, vomiting or diarrhea : Denies: dysuria Musc: Reports: extremity pain Skin/Breast: Denies: rash Neuro: Denies: headache(s) Psych: Denies: depression Magdi/Lymph: Denies: easy bruising All/Imm: Denies: urticaria PFSH ED PFSH: Medical History Anemia Anxiety Asthma Chronic back pain Chronic pain Chronic shoulder pain Depression Diabetes mellitus Encounter for long-term opiate analgesic use Fibromyalgia GERD (gastroesophageal reflux disease) Gout High risk medication use Hypothyroidism Immunization counseling Immunization counseling Inflammatory arthritis Joint pain Laceration of right lower leg Lupus (systemic lupus erythematosus) Nephrolithiasis Osteoarthritis Psychiatric care PTSD (post-traumatic stress disorder) SLE (systemic lupus erythematosus related syndrome) Spinal stenosis Stricture of esophagus Urolithiasis History of recurrent stones. No obstructing stones identified during admission 07/14/2020 Surgical History Gastric bypass status for obesity History of carpal tunnel surgery History of cholecystectomy History of fusion of cervical spine History of lumbar spinal fusion History of partial knee replacement History of shoulder surgery History of spinal fusion Cervical and lumbar History of tonsillectomy History of tubal ligation Status post fusion of wrist Family History Sister Cancer Mother Diabetes Heart disease Grandfather Diabetes Grandmother Diabetes Father Heart disease Other CAD (coronary artery disease) Clotting disorder Hypertension Stroke Denies family history of Hyperlipidemia Chronic kidney disease (CKD) Lung disease Social History Smoking and tobacco status: never smoked Second hand smoke exposure: No Alcohol intake: never Adopted: No Marital status: Single Number of children: 2 service: No Physical Exam Const: COMMON NORMALS: no acute distress, patient oriented x3 and healthy appearing HENMT: COMMON NORMALS: normocephalic and atraumatic HEAD & SCALP: normocephalic and atraumatic Eye: COMMON NORMALS: Equal, round and reactive pupils present and EOMs intact bilaterally PUPIL: Yes Equal, round and reactive pupils present Neck/C-Spine: COMMON NORMALS: full ROM and supple Chest: COMMONS NORMALS: normal inspection of the chest and normal palpation of entire chest wall Resp: COMMON NORMALS: normal respiratory effort, No retractions, No use of accessory muscles and clear to auscultation bilaterally AUSCULTATION: clear to auscultation bilaterally Cardio: COMMON NORMALS: regular rate, regular rhythm and No murmurs present (Cardio) RATE: regular rate RHYTHM: regular rhythm GI: COMMON NORMALS: Normal to inspection, nondistended, normoactive bowel sounds present, Soft to palpation, non-tender and no masses PALPATION: Yes Soft to palpation Extremity: COMMON NORMALS: full ROM NARRATIVE EXTREMITY EXAM: Tenderness over left shoulder pain with range of motion Neuro: COMMON NORMALS: patient oriented x3, moves all extremities and no focal motor deficits Psych: COMMON NORMALS: mental status grossly normal, Normal thought process present and cooperative THOUGHT PROCESS: Normal thought process present Skin: COMMON NORMALS: no rashes or lesions noted and no wounds GENERAL SKIN EXAM: no rashes or lesions noted Course Vital Signs: Vital signs: Vital Signs Temperature 98.2 F 07/19/22 19:13 Pulse Rate 79 07/19/22 19:13 Respiratory Rate 16 07/19/22 19:13 Blood Pressure 124/72 07/19/22 19:13 Pulse Oximetry 97 07/19/22 19:13 Oxygen Delivery Me thod 07/19/22 19:13 MDM - Extremity (Nontraumatic) Medical Decision Making Patient presents here with a shoulder sprain x-ray here is normal her EKG is normal she is stable for discharge she is to follow-up PCP and return if worsening. Lab Data Radiology Impressions Shoulder X-Ray 07/19/22 18:58 IMPRESSION: No acute findings. Discharge Plan Discharge Patient Disposition: Home Clinical Impression: Left shoulder strain Condition: Stable Prescriptions: New methocarbamol 750 mg tablet 750 mg PO Q6H PRN (Reason: spasms) Qty: 20 0RF No Action valacyclovir 1 tab PO DAILY cholecalciferol (vitamin D3) 50 mcg (2,000 unit) capsule 50 mcg PO DAILY magnesium 100 mg tablet 100 mg PO DAILY B Complex Plus Vitamin C 96-81-29-5-300 mg capsule 1 cap PO DAILY Rx Instructions: give with food (meal/snack) oxycodone-acetaminophen 7.5-325 mg tablet 1 tab PO QID PRN (Reason: pain) 30 Days Qty: 120 0RF Rx Instructions: fill on or after 05/16/21 docusate sodium 100 mg capsule 200 mg PO DAILY@2200 epinephrine 0.15 mg/0.3 mL auto-injector 0.15 mg IM Q30M PRN (Reason: Allergy Symptoms) Rx Instructions: do not exceed 12 doses per 24 hrs montelukast 10 mg tablet 10 mg PO DAILY@2200 promethazine 25 mg tablet 25 mg PO BID PRN (Reason: Nausea) diclofenac sodium 1 % gel 4 g topical QID 30 Days Qty: 300 1RF Rx Instructions: apply to single knee, ankle, foot; for foot includes sole/toes/top of foot fluconazole [Diflucan] 150 mg tablet 150 mg PO DAILY 10 Days Qty: 10 0RF (DME) abdominal binder See Rx Instructions .Route .MEDSUPPLY Qty: 1 0RF Rx Instructions: As directed prednisone 10 mg tablet See Rx Instructions PO DAILY PRN (Reason: Pain) Qty: 30 1RF Rx Instructions: take 1 tab daily for 5-7 days prn joint pain flare levothyroxine 150 mcg tablet 150 mcg PO DAILY 90 Days Qty: 90 1RF pantoprazole 40 mg tablet,delayed release (DR/EC) See Rx Instructions .ROUTE .COMPLEX Qty: 60 2RF Dose Instruction: TAKE ONE TABLET BY MOUTH TWICE DAILY AT 7 IN THE MORNING AND 10 IN THE EVENING Rx Instructions: TAKE ONE TABLET BY MOUTH TWICE DAILY AT 7 IN THE MORNING AND 10 IN THE EVENING ciprofloxacin HCl 500 mg tablet 500 mg PO DAILY 7 Days Qty: 7 0RF Benlysta 200 mg/mL syringe See Rx Instructions .ROUTE .COMPLEX Qty: 4 3RF Dose Instruction: INJECT 200MG SUBCUTANEOUSLY EVERY SEVEN DAYS Rx Instructions: INJECT 200MG SUBCUTANEOUSLY EVERY SEVEN DAYS albuterol sulfate 90 mcg/actuation Hfa Aerosol Inhaler 2 puff INHALATION Q6H PRN (Reason: Shortness Of Breath) bupropion HCl 300 mg tablet extended release 24 hr 300 mg PO DAILY@07 methocarbamol 750 mg tablet 750 mg PO TID PRN (Reason: Muscle Pain) pramipexole 0.125 mg tablet 0.125 mg PO BEDTIME Rx Instructions: 1-2 tablets allopurinol 300 mg tablet 300 mg PO DAILY alprazolam 0.5 mg tablet 0.25 - 0.5 mg PO QPM PRN (Reason: Anxiety) Xyzal 5 mg Tablet 5 mg PO DAILY Discharge Orders: Discharge ED (Routine); Ordered 07/19/22 Ordered By: Samina Rodriguez Referrals: Charli Jennings [Primary Care Provider] - Jose Haji MD [Physician] - 1-3 days Discharge Diet: Advance as tolerated Discharge Activity: Resume usual activity Patient Instructions: Shoulder Sprain (ED), Shoulder Pain (ED) Coding Level of Care Code ED [employer] Sales for Haley Novoa
[2022-07-19] MEDS: HYDROcodone-acetaminophen 5-325 mg Tablet 1 TAB PO (21:56)
[2022-07-19 22:03] VITALS: BP 117/74; PULSE 77; O2SAT 98
== END 2022-07-19 22:05 | disposition home or self-care (01) ==
PROVIDERS: Emergency Provider Emergency Medicine; PCP Family Medicine
DX: S46.912A Strain of unspecified muscle, fascia and tendon at shoulder and upper arm level, left arm, initial encounter (principal); E11.9 Type 2 diabetes mellitus without complications; M32.9 Systemic lupus erythematosus, unspecified; X50.0XXA Overexertion from strenuous movement or load, initial encounter
CPT/HCPCS: 73030; 93005; 99284

== ENCOUNTER → 2022-08-20 08:09 | Outpatient (BNVA) | payer MEDICARE, MEDICAID, SELFPAY | PROVIDERS: PCP Family Medicine; Visit Provider Orthopaedic Surgery | DX: M75.102 Unspecified rotator cuff tear or rupture of left shoulder, not specified as traumatic (principal) | CPT/HCPCS: 99213 ==

== ENCOUNTER → 2022-09-25 08:49 | Outpatient (BNVA) | payer MEDICARE, MEDICAID, SELFPAY | PROVIDERS: PCP Family Medicine; Visit Provider Internal Medicine Rheumatology | DX: M32.9 Systemic lupus erythematosus, unspecified (principal); Z79.899 Other long term (current) drug therapy; Z71.85 Encounter for immunization safety counseling; M19.90 Unspecified osteoarthritis, unspecified site | CPT/HCPCS: 36415; 80076; 81001; 82565; 82570; 84156; 85025; 86140; 99214 ==

== ENCOUNTER 2022-12-24 09:56 | Outpatient (CLI) | payer MEDICARE, MEDICAID, SELFPAY ==
[2022-12-24 10:32] LABS: Basophils % 0.7 %; Eosinophils # 0.2 10^3/uL (0.0-0.8); Eosinophils % 5.3 %; Lymphocytes # 0.8 10^3/uL (0.8-4.8); Mean Corpuscular HGB Conc 32.5 g/dL (30-55); Mean Corpuscular Hemoglobin 30.9 pg (27-33); Mean Platelet Volume 11.8 fL (7.4-10.4); Monocytes # 0.3 10^3/uL (0.2-0.9); Monocytes % 7.5 %; Neutrophils # 2.74 10^3/uL (1.8-7.7); Neutrophils % 66.3 %; Nucleated Red Blood Cells % 0 %; Platelet Count 216 10^3/cmm (157-399); Red Blood Count 3.79 10^6/uL (3.85-5.65); Red Cell Distribution Width 14.6 % (12.1-15.1); White Blood Count 4.14 10^3/uL (3.29-11.43)
[2022-12-24 10:42] LABS: Estmated Average Glucose 114; Hemoglobin A1C 5.6 % (4.0-6.0)
[2022-12-24 10:59] LABS: Calcium 8.9 mg/dL (8.5-10.5); Parathyroid Hormone 106.1 pg/mL (15-65)
[2022-12-24 11:08] LABS: 25 Hydroxy Vitamin D 41 ng/mL (30-100); Alanine Aminotransferase 16 U/L (0-33); Albumin Level 4.3 g/dL (3.5-5.2); Alkaline Phosphatase 89 U/L (35-105); Aspartate Amino Transferase 21 U/L (0-32); C Reactive Protein 3.5 mg/L (0.0-4.9); Globulin 1.9 g/dL (1.3-4.6); Glomerular Filtration Rate 103.4 mL/min (90-130); Thyroid Stimulating Hormone 0.05 uIU/mL (0.27-4.20); Total Bilirubin 0.2 mg/dL (0.15-1.2); Total Protein 6.2 g/dL (6.6-8.7)
[2022-12-24 11:33] LABS: Free T4 Free Thyroxine 1.68 ng/dL (0.82-1.77)
== END 2022-12-24 09:57 | disposition home or self-care (01) ==
PROVIDERS: Absent Provider Internal Medicine Rheumatology; PCP Family Medicine; Visit Provider Internal Medicine
DX: M32.9 Systemic lupus erythematosus, unspecified (principal); E03.9 Hypothyroidism, unspecified; E21.3 Hyperparathyroidism, unspecified; E11.9 Type 2 diabetes mellitus without complications; Z79.899 Other long term (current) drug therapy; M19.90 Unspecified osteoarthritis, unspecified site; Z71.85 Encounter for immunization safety counseling
CPT/HCPCS: 36415; 80076; 82306; 82310; 82565; 83036; 83970; 84439; 84443; 85025; 86140; 99214

== ENCOUNTER → 2023-01-15 08:06 | Outpatient (BNVA) | payer MEDICARE, MEDICAID, SELFPAY | PROVIDERS: PCP Family Medicine; Visit Provider Internal Medicine | DX: E11.9 Type 2 diabetes mellitus without complications (principal); E03.9 Hypothyroidism, unspecified; E16.2 Hypoglycemia, unspecified; E21.3 Hyperparathyroidism, unspecified; Z79.890 Hormone replacement therapy | CPT/HCPCS: 99214 ==